=== PATIENT | female | born 1930 | race Two or more races ===

== ENCOUNTER 2017-01-16 12:39 | Inpatient (IN) | payer MEDICARE, MEDICAID ==
[~2017-01-16] VITALS: Ht 149.9 cm; Wt 55.0 kg
[2017-01-16] MEDS ORDERED: SODIUM CHLORIDE FLUSH 10ML SYR IVF ONE (13:00)
[2017-01-16] MEDS ORDERED: ASPIRIN 81 MG TABLET CHEW PO ONE (13:00)
[2017-01-16] MEDS ORDERED: ASPIRIN 81 MG TABLET CHEW ONE (13:09)
[2017-01-16 13:23] LABS: HEMATOCRIT 31.5 % (34.6-47.8); HEMOGLOBIN 10.3 g/dL (11.7-16.4); WHITE BLOOD COUNT 7.8 x10^3/uL (3.4-10)
[2017-01-16 13:33] LABS: BLOOD UREA NITROGEN 32 mg/dL (7-18)
[2017-01-16 13:38] LABS: ASPARTATE AMINO TRANSFERASE 35 U/L (15-37); IS PT STATUS REG ER OR PRE ER? YES
[2017-01-16] MEDS ORDERED: LIDOCAINE 2%, 20ML ONE (13:56)
[2017-01-16] MEDS ORDERED: TICA90TA PO (14:20)
[2017-01-16] MEDS ORDERED: SITA25TA PO (14:20)
[2017-01-16] MEDS ORDERED: FERR325T5 BC (14:20)
[2017-01-16] MEDS ORDERED: CARV3.122 PO ×2 (14:20→14:22)
[2017-01-16] MEDS ORDERED: ASPI-621 PO (14:20)
[2017-01-16] MEDS ORDERED: SIMV40TA3 PO (14:20)
[2017-01-16] MEDS ORDERED: GLIP5TAB10 PO (14:20)
[2017-01-16] MEDS ORDERED: PANT40TA5 PO (14:20)
[2017-01-16] MEDS ORDERED: LEVO50TA5 PO (14:20)
[2017-01-16] MEDS ORDERED: BUME0.5T PO (14:22)
[2017-01-16] MEDS ORDERED: BUME1TAB21 PO (14:22)
[2017-01-16] MEDS ORDERED: SODIUM CHLORIDE FLUSH 10ML SYR IVF PRN (14:30)
[2017-01-16 15:48] LABS: TOTAL IRON BINDING CAPACITY 304 mcg/dL (250-450)
[2017-01-16] MEDS ORDERED: hydrALAzine 20 MG/ML, 1ML IVPush PRN (16:00)
[2017-01-16] MEDS ORDERED: ONDANSETRON 2MG/ML, 2ML IVPush PRN (16:00)
[2017-01-16] MEDS ORDERED: HYDROcodone/APAP 5/325 TABLET PO PRN (16:00)
[2017-01-16] MEDS ORDERED: morphine SULFATE 10 MG/ML, 1ML IVPush PRN (16:00)
[2017-01-16] MEDS ORDERED: ACETAMINOPHEN 325 MG TABLET PO PRN (16:00)
[2017-01-16] MEDS: PANTOPROZOLE 40MG TABLET PO SCH (16:30)
[2017-01-16 17:11] VITALS: BP 113/73
[2017-01-16] MEDS: FUROSEMIDE 20 MG/2 ML IV SCH (18:04)
[2017-01-16] MEDS ORDERED: NITROGLYCERIN 0.4 MG BOTTLE (25 TABS) SL ONE (18:09)
[2017-01-16 18:19] VITALS: BP 109/72
[2017-01-16] MEDS ORDERED: NITROGLYCERIN 0.4 MG BOTTLE (25 TABS) SL PRN (18:30)
[2017-01-16 18:34] VITALS: BP 103/64
[2017-01-16 20:00] VITALS: BP 112/73
[2017-01-16] MEDS: FERROUS SULFATE 325 MG TABLET PO SCH (21:04)
[2017-01-16] MEDS: TICAGRELOR 90 MG TABLET PO SCH (21:05)
[2017-01-16] MEDS: SIMVASTATIN 40 MG TABLET PO SCH (21:05)
[2017-01-16] MEDS: CARVEDILOL 3.125 MG TABLET PO SCH (21:05)
[2017-01-16] MEDS: INSULIN ASPART 100 UNITS/ML, PEN SQ-INSULIN SCH (21:41)
[2017-01-16 22:05] LABS: IS PT STATUS REG ER OR PRE ER? NO
[2017-01-17 02:00] VITALS: BP 119/78
[2017-01-17 04:16] LABS: IS PT STATUS REG ER OR PRE ER? NO
[2017-01-17 04:21] LABS: ASPARTATE AMINO TRANSFERASE 25 U/L (15-37); BLOOD UREA NITROGEN 34 mg/dL (7-18)
[2017-01-17] MEDS: POLYETHYLENE GLYCOL 17 GM PACKET PO SCH (05:11)
[2017-01-17 08:00] VITALS: BP 108/76
[2017-01-17] MEDS: ENOXAPARIN 30 MG/0.3 ML SQ SCH (09:57)
[2017-01-17] MEDS: INSULIN ASPART 100 UNITS/ML, PEN SQ-INSULIN SCH ×4 (09:57→20:47)
[2017-01-17] MEDS: PANTOPROZOLE 40MG TABLET PO SCH (09:57)
[2017-01-17] MEDS: ASPIRIN 81 MG TABLET EC PO SCH (09:58)
[2017-01-17] MEDS: CARVEDILOL 3.125 MG TABLET PO SCH ×2 (09:58→20:49)
[2017-01-17] MEDS: FERROUS SULFATE 325 MG TABLET PO SCH ×2 (09:58→20:48)
[2017-01-17] MEDS: LEVOTHYROXINE 50 MCG TABLET PO SCH (09:58)
[2017-01-17] MEDS: TICAGRELOR 90 MG TABLET PO SCH ×2 (09:58→20:48)
[2017-01-17] MEDS: POTASSIUM CHLORIDE 20 MEQ TAB.ER.PRT PO SCH (09:59)
[2017-01-17] MEDS: FUROSEMIDE 20 MG/2 ML IV SCH ×2 (09:59→17:51)
[2017-01-17 15:12] VITALS: BP 100/66
[2017-01-17 20:15] VITALS: BP 103/63
[2017-01-17] MEDS: SIMVASTATIN 40 MG TABLET PO SCH (20:48)
[2017-01-18 01:00] VITALS: BP 105/70
[2017-01-18] MEDS ORDERED: hydrALAzine 20 MG/ML, 1ML IVPush PRN (02:00)
[2017-01-18] MEDS ORDERED: ACETAMINOPHEN 325 MG TABLET PO PRN (02:00)
[2017-01-18] MEDS ORDERED: NITROGLYCERIN 0.4 MG BOTTLE (25 TABS) SL PRN (02:00)
[2017-01-18] MEDS ORDERED: ONDANSETRON 2MG/ML, 2ML IVPush PRN (02:00)
[2017-01-18] MEDS ORDERED: morphine SULFATE 10 MG/ML, 1ML IVPush PRN (02:00)
[2017-01-18] MEDS ORDERED: HYDROcodone/APAP 5/325 TABLET PO PRN (02:00)
[2017-01-18 06:09] LABS: BLOOD UREA NITROGEN 34 mg/dL (7-18)
[2017-01-18] MEDS: LEVOTHYROXINE 50 MCG TABLET PO SCH (06:19)
[2017-01-18] MEDS: INSULIN ASPART 100 UNITS/ML, PEN SQ-INSULIN SCH ×4 (07:00→21:23)
[2017-01-18 08:30] VITALS: BP 113/74
[2017-01-18] MEDS: POLYETHYLENE GLYCOL 17 GM PACKET PO SCH (08:58)
[2017-01-18] MEDS: FERROUS SULFATE 325 MG TABLET PO SCH ×2 (08:59→21:18)
[2017-01-18] MEDS: FUROSEMIDE 20 MG/2 ML IV SCH ×2 (08:59→16:54)
[2017-01-18] MEDS: POTASSIUM CHLORIDE 20 MEQ TAB.ER.PRT PO SCH (08:59)
[2017-01-18] MEDS: CARVEDILOL 3.125 MG TABLET PO SCH ×2 (08:59→21:18)
[2017-01-18] MEDS: ASPIRIN 81 MG TABLET EC PO SCH (08:59)
[2017-01-18] MEDS: TICAGRELOR 90 MG TABLET PO SCH ×2 (08:59→21:18)
[2017-01-18] MEDS: PANTOPROZOLE 40MG TABLET PO SCH (08:59)
[2017-01-18] MEDS: ENOXAPARIN 30 MG/0.3 ML SQ SCH (09:00)
[2017-01-18 14:02] VITALS: BP 96/62
[2017-01-18 19:01] VITALS: BP 96/61
[2017-01-18 21:14] VITALS: BP 105/67
[2017-01-18] MEDS: SIMVASTATIN 40 MG TABLET PO SCH (21:18)
[2017-01-19 00:28] VITALS: BP 94/58
[2017-01-19 05:20] LABS: BLOOD UREA NITROGEN 35 mg/dL (7-18)
[2017-01-19] MEDS: LEVOTHYROXINE 50 MCG TABLET PO SCH (05:32)
[2017-01-19] MEDS: INSULIN ASPART 100 UNITS/ML, PEN SQ-INSULIN SCH ×4 (07:00→21:32)
[2017-01-19 08:24] VITALS: BP 105/68
[2017-01-19] MEDS: POLYETHYLENE GLYCOL 17 GM PACKET PO SCH (09:00)
[2017-01-19] MEDS: FUROSEMIDE 20 MG/2 ML IV SCH ×2 (09:42→17:00)
[2017-01-19] MEDS: PANTOPROZOLE 40MG TABLET PO SCH (09:42)
[2017-01-19] MEDS: FERROUS SULFATE 325 MG TABLET PO SCH ×2 (09:43→21:22)
[2017-01-19] MEDS: POTASSIUM CHLORIDE 20 MEQ TAB.ER.PRT PO SCH (09:43)
[2017-01-19] MEDS: CARVEDILOL 3.125 MG TABLET PO SCH ×2 (09:43→21:25)
[2017-01-19] MEDS: ASPIRIN 81 MG TABLET EC PO SCH (09:43)
[2017-01-19] MEDS: TICAGRELOR 90 MG TABLET PO SCH ×2 (09:44→21:22)
[2017-01-19] MEDS: ENOXAPARIN 30 MG/0.3 ML SQ SCH (09:45)
[2017-01-19 14:30] VITALS: BP 97/65
[2017-01-19 18:48] VITALS: BP 92/58
[2017-01-19] MEDS: SIMVASTATIN 40 MG TABLET PO SCH (21:23)
[2017-01-20 02:00] VITALS: BP 102/62
[2017-01-20] MEDS: LEVOTHYROXINE 50 MCG TABLET PO SCH (04:27)
[2017-01-20 04:28] VITALS: BP_SYST 108
[2017-01-20 05:51] LABS: BLOOD UREA NITROGEN 38 mg/dL (7-18)
[2017-01-20] MEDS: INSULIN ASPART 100 UNITS/ML, PEN SQ-INSULIN SCH ×4 (07:00→20:56)
[2017-01-20 09:25] VITALS: BP 99/62
[2017-01-20] MEDS: CARVEDILOL 3.125 MG TABLET PO SCH ×2 (09:26→20:47)
[2017-01-20] MEDS: ASPIRIN 81 MG TABLET EC PO SCH (09:26)
[2017-01-20] MEDS: TICAGRELOR 90 MG TABLET PO SCH ×2 (09:26→20:47)
[2017-01-20] MEDS: FERROUS SULFATE 325 MG TABLET PO SCH ×2 (09:26→20:47)
[2017-01-20] MEDS: POLYETHYLENE GLYCOL 17 GM PACKET PO SCH (09:27)
[2017-01-20] MEDS: FUROSEMIDE 20 MG/2 ML IV SCH ×2 (09:27→16:47)
[2017-01-20] MEDS: ENOXAPARIN 30 MG/0.3 ML SQ SCH (09:27)
[2017-01-20] MEDS: POTASSIUM CHLORIDE 20 MEQ TAB.ER.PRT PO SCH (09:27)
[2017-01-20] MEDS: PANTOPROZOLE 40MG TABLET PO SCH (09:27)
[2017-01-20 14:10] VITALS: BP 103/64
[2017-01-20 19:30] VITALS: BP 93/55
[2017-01-20] MEDS: SIMVASTATIN 40 MG TABLET PO SCH (21:08)
[2017-01-21 02:00] VITALS: BP 102/64
[2017-01-21 05:35] LABS: BLOOD UREA NITROGEN 40 mg/dL (7-18)
[2017-01-21] MEDS: LEVOTHYROXINE 50 MCG TABLET PO SCH (06:45)
[2017-01-21 08:28] VITALS: BP 97/65
[2017-01-21] MEDS: INSULIN ASPART 100 UNITS/ML, PEN SQ-INSULIN SCH ×4 (08:30→20:22)
[2017-01-21] MEDS: FERROUS SULFATE 325 MG TABLET PO SCH ×2 (08:32→20:21)
[2017-01-21] MEDS: TICAGRELOR 90 MG TABLET PO SCH ×2 (08:32→20:21)
[2017-01-21] MEDS: ASPIRIN 81 MG TABLET EC PO SCH (08:32)
[2017-01-21] MEDS: CARVEDILOL 3.125 MG TABLET PO SCH ×2 (08:33→22:30)
[2017-01-21] MEDS: PANTOPROZOLE 40MG TABLET PO SCH (08:33)
[2017-01-21 10:45] VITALS: BP 101/59
[2017-01-21] MEDS: POTASSIUM CHLORIDE 20 MEQ TAB.ER.PRT PO SCH (10:46)
[2017-01-21] MEDS: POLYETHYLENE GLYCOL 17 GM PACKET PO SCH (10:47)
[2017-01-21] MEDS: ENOXAPARIN 30 MG/0.3 ML SQ SCH (10:47)
[2017-01-21] MEDS: FUROSEMIDE 40 MG TABLET PO SCH (10:48)
[2017-01-21 14:05] VITALS: BP 98/62
[2017-01-21 19:45] VITALS: BP 94/60
[2017-01-21] MEDS: SIMVASTATIN 40 MG TABLET PO SCH (20:21)
[2017-01-21 22:29] VITALS: BP 95/64
[2017-01-22 02:00] VITALS: BP 103/68
[2017-01-22] MEDS: LEVOTHYROXINE 50 MCG TABLET PO SCH (05:30)
[2017-01-22 06:17] LABS: BLOOD UREA NITROGEN 48 mg/dL (7-18)
[2017-01-22 07:54] VITALS: BP 100/64
[2017-01-22] MEDS: ENOXAPARIN 30 MG/0.3 ML SQ SCH (08:34)
[2017-01-22] MEDS: INSULIN ASPART 100 UNITS/ML, PEN SQ-INSULIN SCH (08:34)
[2017-01-22] MEDS: ASPIRIN 81 MG TABLET EC PO SCH (08:34)
[2017-01-22] MEDS: FUROSEMIDE 40 MG TABLET PO SCH (08:34)
[2017-01-22] MEDS: PANTOPROZOLE 40MG TABLET PO SCH (08:34)
[2017-01-22] MEDS: POLYETHYLENE GLYCOL 17 GM PACKET PO SCH (08:34)
[2017-01-22] MEDS: POTASSIUM CHLORIDE 20 MEQ TAB.ER.PRT PO SCH (08:35)
[2017-01-22] MEDS: TICAGRELOR 90 MG TABLET PO SCH (08:35)
[2017-01-22] MEDS: FERROUS SULFATE 325 MG TABLET PO SCH (08:35)
[2017-01-22] MEDS: CARVEDILOL 3.125 MG TABLET PO SCH (08:35)
[2017-01-22] MEDS ORDERED: FURO-93 PO (08:45)
[2017-01-22] MEDS ORDERED: POTA20TA6 PO (08:45)
[2017-01-22] MEDS ORDERED: POLY17PO5 PO (08:55)
[2017-01-22] MEDS ORDERED: POTA10TA11 PO (09:14)
== END 2017-01-22 11:25 | disposition home health service (06) | DRG 291 ==
LOC: SUATTDRO 15:14 → ED 15:15 → EDIP 15:48 → 5SO 17:02 → DCLOUNGE 01-22 10:58
PROVIDERS: ADMIT Internal Medicine; ATTEND Internal Medicine
PROC: 0W9B3ZZ Drainage of Left Pleural Cavity, Percutaneous Approach (ICD-10-PCS; principal; 2017-01-16)
DX: I13.0 Hypertensive heart and chronic kidney disease with heart failure and stage 1 through stage 4 chronic kidney disease, or unspecified chronic kidney disease (principal); I50.41 Acute combined systolic (congestive) and diastolic (congestive) heart failure; E43 Unspecified severe protein-calorie malnutrition; J90 Pleural effusion, not elsewhere classified; I24.9 Acute ischemic heart disease, unspecified; E87.1 Hypo-osmolality and hyponatremia; E11.22 Type 2 diabetes mellitus with diabetic chronic kidney disease; D75.89 Other specified diseases of blood and blood-forming organs; D50.9 Iron deficiency anemia, unspecified; I25.10 Atherosclerotic heart disease of native coronary artery without angina pectoris; I27.2 Other secondary pulmonary hypertension; I08.3 Combined rheumatic disorders of mitral, aortic and tricuspid valves; K59.09 Other constipation; N18.3 Chronic kidney disease, stage 3 (moderate); Z79.82 Long term (current) use of aspirin; Z95.5 Presence of coronary angioplasty implant and graft; Z68.24 Body mass index [BMI] 24.0-24.9, adult
CPT/HCPCS: 32555; 36415; 71010; 80048; 80053; 82150; 82945; 82962; 83036; 83540; 83550; 83615; 83735; 83880; 83986; 84100; 84157; 84443; 84484; 85025; 87015; 87070; 87075; 87102; 87116; 87205; 87206; 89051; 93005; 93306; 99285; J1650; J1815; J3490; J1940

== ENCOUNTER → 2017-02-02 | Outpatient (CLI) | payer MEDICARE, MEDICAID ==
[~2017-02-02] MED LIST: ASPI-621 PO; BUME0.5T PO; BUME1TAB21 PO; CARV3.122 PO; FERR325T5 BC; FURO-93 PO; GLIP5TAB10 PO; LEVO50TA5 PO; PANT40TA5 PO; POLY17PO5 PO; POTA10TA11 PO; POTA20TA6 PO; SIMV40TA3 PO; SITA25TA PO; TICA90TA PO
== END | disposition home or self-care (01) ==
LOC: CFH 15:07
PROVIDERS: ATTEND Physician Assistant Medical
DX: I51.7 Cardiomegaly (principal); J90 Pleural effusion, not elsewhere classified
CPT/HCPCS: 71020

== ENCOUNTER 2017-04-25 19:09 | Inpatient (IN) | payer MEDICARE, MEDICAID ==
[~2017-04-25] VITALS: Ht 144.8 cm; Wt 59.3 kg
[2017-04-25] MEDS ORDERED: ASPIRIN 81 MG TABLET CHEW ONE (19:52)
[2017-04-25] MEDS ORDERED: SODIUM CHLORIDE FLUSH 10ML SYR IVF ONE (20:00)
[2017-04-25] MEDS ORDERED: ASPIRIN 81 MG TABLET CHEW PO ONE (20:00)
[2017-04-25 20:12] LABS: BASOPHILS # (AUTO) 0.02 x10^3/uL (0-0.1); BASOPHILS % (AUTO) 0 % (0-1); EOSINOPHILS # (AUTO) 0.04 x10^3/uL (0-0.4); EOSINOPHILS % (AUTO) 0 % (1-7); LYMPHOCYTES # (AUTO) 1.31 x10^3/uL (1-3.4); LYMPHOCYTES % (AUTO) 16 % (22-44); MD NO; MEAN CORPUSCULAR HEMOGLOBIN 30.2 pg (27.0-34.8); MEAN CORPUSCULAR HGB CONC 33.9 g/dL (32.4-35.8); MEAN CORPUSCULAR VOLUME 89.2 fL (80-100); MEAN PLATELET VOLUME 7.7 fL (7.4-10.4); MONOCYTES # (AUTO) 0.47 x10^3/uL (0.2-0.8); MONOCYTES % (AUTO) 6 % (2-9); NEUTROPHILS # (AUTO) 6.66 x10^3/uL (1.8-6.8); NEUTROPHILS % (AUTO) 78 % (42-75); PLATELET COUNT 342 x10^3/uL (130-400); RED BLOOD COUNT 3.38 x10^6/uL (3.82-5.3); RED CELL DISTRIBUTION WIDTH 15.4 % (9.6-15.2)
[2017-04-25 20:23] LABS: ALBUMIN 3.6 g/dL (3.4-5.0); ANION GAP 11 mmol/L (5-15); CHLORIDE 102 mmol/L (98-107)
[2017-04-25 20:29] LABS: CREATININE 2.69 mg/dL (0.55-1.02)
[2017-04-25] MEDS ORDERED: HEPARIN 5,000 UNITS/ML, 1ML IV ONE (21:00)
[2017-04-25] MEDS ORDERED: HEPARIN 25,000 UNITS/500ML PMX 500 ML IV PRN (21:00)
[2017-04-25] MEDS ORDERED: NITROGLYCERIN 0.4 MG/SPRAY SL PRN (21:30)
[2017-04-25] MEDS ORDERED: PROMETHAZINE 25 MG/ML, 1ML IM PRN (21:30)
[2017-04-25] MEDS ORDERED: NITROGLYCERIN 0.4 MG BOTTLE (25 TABS) SL PRN (21:30)
[2017-04-25] MEDS ORDERED: BISACODYL 10 MG SUPP PR PRN (21:30)
[2017-04-25] MEDS ORDERED: DOCUSATE 100 MG CAPSULE PO PRN (21:30)
[2017-04-25] MEDS ORDERED: ONDANSETRON 2MG/ML, 2ML IVPush PRN (21:30)
[2017-04-25] MEDS ORDERED: ACETAMINOPHEN 325 MG TABLET PO PRN (21:30)
[2017-04-25] MEDS ORDERED: morphine SULFATE 10 MG/ML, 1ML IVPush PRN (21:30)
[2017-04-25] MEDS ORDERED: ONDANSETRON ODT 4 MG PO PRN (21:30)
[2017-04-25] MEDS ORDERED: HEPARIN 25,000 UNITS/500ML PMX 500 ML ONE (21:39)
[2017-04-25] MEDS ORDERED: HEPARIN 5,000 UNITS/ML, 1ML ONE (21:39)
[2017-04-25] MEDS ORDERED: GLIP10TA13 PO ×2 (21:58→21:59)
[2017-04-25 22:04] LABS: HEMOGLOBIN A1C 9.3 % (4.2-6.3)
[2017-04-25 23:35] VITALS: BP 102/61
[2017-04-26] MEDS: INSULIN ASPART 100 UNITS/ML, PEN SQ-INSULIN SCH ×5 (00:30→19:34)
[2017-04-26] MEDS: SODIUM CHLORIDE 0.9% 1,000 ML IV SCH ×3 (00:33→19:35)
[2017-04-26 04:30] VITALS: BP 101/59
[2017-04-26 04:34] LABS: BASOPHILS # (AUTO) 0.03 x10^3/uL (0-0.1); BASOPHILS % (AUTO) 0 % (0-1); EOSINOPHILS # (AUTO) 0.07 x10^3/uL (0-0.4); EOSINOPHILS % (AUTO) 1 % (1-7); LYMPHOCYTES # (AUTO) 1.91 x10^3/uL (1-3.4); LYMPHOCYTES % (AUTO) 28 % (22-44); MD NO; MEAN CORPUSCULAR HEMOGLOBIN 30.4 pg (27.0-34.8); MEAN CORPUSCULAR HGB CONC 33.8 g/dL (32.4-35.8); MEAN CORPUSCULAR VOLUME 89.9 fL (80-100); MEAN PLATELET VOLUME 7.8 fL (7.4-10.4); MONOCYTES # (AUTO) 0.78 x10^3/uL (0.2-0.8); MONOCYTES % (AUTO) 11 % (2-9); NEUTROPHILS # (AUTO) 4.07 x10^3/uL (1.8-6.8); NEUTROPHILS % (AUTO) 59 % (42-75); PLATELET COUNT 318 x10^3/uL (130-400); RED BLOOD COUNT 3.05 x10^6/uL (3.82-5.3); RED CELL DISTRIBUTION WIDTH 15.5 % (9.6-15.2)
[2017-04-26 04:41] LABS: CHLORIDE 108 mmol/L (98-107)
[2017-04-26 05:06] LABS: ALANINE AMINOTRANSFERASE 17 U/L (12-78); ALBUMIN 3.1 g/dL (3.4-5.0); ALKALINE PHOSPHATASE 53 U/L (45-117); ANION GAP 10 mmol/L (5-15); BILIRUBIN,TOTAL 0.6 mg/dL (0.2-1.0); CALCIUM 8.5 mg/dL (8.5-10.1); CHOL/HDL RATIO 1.8; CHOLESTEROL, TOTAL 90 mg/dL (140-239); CREATININE 2.19 mg/dL (0.55-1.02); HDL CHOL % 54 % (28-40); HDL CHOLESTEROL (DIRECT) 49 mg/dL (40-60); LDL CHOLESTEROL,CALCULATED 27 mg/dL (54-169); LDL/HDL RATIO 0.6 (0.5-3.0); TOTAL PROTEIN 7.3 g/dL (6.4-8.2); TRIGLYCERIDES 68 mg/dL (50-200); VLDL CHOLESTEROL 14 mg/dL (0-25)
[2017-04-26] MEDS: HEPARIN 5,000 UNITS/ML, 1ML IV PRN ×2 (05:47→18:22)
[2017-04-26] MEDS ORDERED: ASPIRIN 325 MG TABLET EC PO SCH (06:00)
[2017-04-26 06:47] VITALS: BP 98/75
[2017-04-26] MEDS ORDERED: METOPROLOL TARTRATE 25 MG TABLET PO SCH (09:00)
[2017-04-26] MEDS: TICAGRELOR 90 MG TABLET PO SCH ×2 (10:32→19:34)
[2017-04-26 13:10] VITALS: BP 93/52
[2017-04-26] MEDS: METOPROLOL TARTRATE 25 MG TABLET PO SCH (18:16)
[2017-04-26 18:17] VITALS: BP 118/65
[2017-04-26 20:22] VITALS: BP 98/59
[2017-04-27 00:53] VITALS: BP 103/59
[2017-04-27] MEDS ORDERED: ASPIRIN 81 MG TABLET EC PO SCH (06:00)
[2017-04-27] MEDS: METOPROLOL TARTRATE 25 MG TABLET PO SCH (06:00)
[2017-04-27 06:38] LABS: BASOPHILS # (AUTO) 0.02 x10^3/uL (0-0.1); BASOPHILS % (AUTO) 0 % (0-1); EOSINOPHILS # (AUTO) 0.15 x10^3/uL (0-0.4); EOSINOPHILS % (AUTO) 2 % (1-7); LYMPHOCYTES # (AUTO) 1.85 x10^3/uL (1-3.4); LYMPHOCYTES % (AUTO) 27 % (22-44); MD NO; MEAN CORPUSCULAR HEMOGLOBIN 30.1 pg (27.0-34.8); MEAN CORPUSCULAR VOLUME 91.3 fL (80-100); MEAN PLATELET VOLUME 7.5 fL (7.4-10.4); MONOCYTES # (AUTO) 0.67 x10^3/uL (0.2-0.8); MONOCYTES % (AUTO) 10 % (2-9); NEUTROPHILS # (AUTO) 4.22 x10^3/uL (1.8-6.8); NEUTROPHILS % (AUTO) 61 % (42-75); PLATELET COUNT 284 x10^3/uL (130-400); RED BLOOD COUNT 2.93 x10^6/uL (3.82-5.3); RED CELL DISTRIBUTION WIDTH 16.3 % (9.6-15.2)
[2017-04-27] MEDS: SODIUM CHLORIDE 0.9% 1,000 ML IV SCH (06:52)
[2017-04-27 07:37] LABS: ANION GAP 11 mmol/L (5-15); CALCIUM 8.8 mg/dL (8.5-10.1); CHLORIDE 109 mmol/L (98-107); CREATININE 1.64 mg/dL (0.55-1.02)
[2017-04-27] MEDS: INSULIN ASPART 100 UNITS/ML, PEN SQ-INSULIN SCH (07:46)
[2017-04-27] MEDS: TICAGRELOR 90 MG TABLET PO SCH (07:46)
[2017-04-27 07:54] VITALS: BP 114/63
[2017-04-27] MEDS ORDERED: ATORVASTATIN 20 MG TABLET PO SCH (21:00)
== END 2017-04-27 12:33 | disposition home or self-care (01) | DRG 280 ==
LOC: ED 20:48 → EDIP 20:53 → 5SO 23:37
PROVIDERS: ADMIT Surgery; ATTEND Surgery
DX: I21.4 Non-ST elevation (NSTEMI) myocardial infarction (principal); I50.33 Acute on chronic diastolic (congestive) heart failure; N17.9 Acute kidney failure, unspecified; N18.4 Chronic kidney disease, stage 4 (severe); I13.0 Hypertensive heart and chronic kidney disease with heart failure and stage 1 through stage 4 chronic kidney disease, or unspecified chronic kidney disease; I50.22 Chronic systolic (congestive) heart failure; E11.22 Type 2 diabetes mellitus with diabetic chronic kidney disease; D63.8 Anemia in other chronic diseases classified elsewhere; E05.90 Thyrotoxicosis, unspecified without thyrotoxic crisis or storm; I45.10 Unspecified right bundle-branch block; E78.00 Pure hypercholesterolemia, unspecified; E86.0 Dehydration; E03.9 Hypothyroidism, unspecified; I25.10 Atherosclerotic heart disease of native coronary artery without angina pectoris; I25.2 Old myocardial infarction; Z79.82 Long term (current) use of aspirin; Z79.899 Other long term (current) drug therapy; Z87.891 Personal history of nicotine dependence; Z95.5 Presence of coronary angioplasty implant and graft; Z98.42 Cataract extraction status, left eye; Z98.41 Cataract extraction status, right eye
CPT/HCPCS: 36415; 71010; 71020; 80048; 80053; 80061; 82040; 82962; 83036; 83735; 83880; 84100; 84443; 84484; 85025; 85520; 93005; 93306; 96365; 96366; J1644; J1815; J7030

== ENCOUNTER 2017-04-27 16:20 | Inpatient (IN) | payer MEDICARE, MEDICAID ==
[~2017-04-27] VITALS: Ht 144.8 cm; Wt 57.7 kg
[~2017-04-27 16:20] MED LIST changes: +GLIP10TA13 PO
[2017-04-27] MEDS ORDERED: PLEASE ENTER HEIGHT AND WEIGHT MC SCH (16:30)
[2017-04-27] MEDS ORDERED: SODIUM CHLORIDE FLUSH 10ML SYR IVF ONE (16:30)
[2017-04-27 16:47] LABS: BASOPHILS # (AUTO) 0.03 x10^3/uL (0-0.1); BASOPHILS % (AUTO) 1 % (0-1); EOSINOPHILS # (AUTO) 0.15 x10^3/uL (0-0.4); EOSINOPHILS % (AUTO) 2 % (1-7); LYMPHOCYTES # (AUTO) 1.36 x10^3/uL (1-3.4); LYMPHOCYTES % (AUTO) 21 % (22-44); MD NO; MEAN CORPUSCULAR HEMOGLOBIN 30.2 pg (27.0-34.8); MEAN CORPUSCULAR HGB CONC 33.3 g/dL (32.4-35.8); MEAN CORPUSCULAR VOLUME 90.9 fL (80-100); MEAN PLATELET VOLUME 7.6 fL (7.4-10.4); MONOCYTES # (AUTO) 0.65 x10^3/uL (0.2-0.8); MONOCYTES % (AUTO) 10 % (2-9); NEUTROPHILS # (AUTO) 4.23 x10^3/uL (1.8-6.8); NEUTROPHILS % (AUTO) 66 % (42-75); PLATELET COUNT 293 x10^3/uL (130-400); RED CELL DISTRIBUTION WIDTH 15.9 % (9.6-15.2)
[2017-04-27 16:57] LABS: INTERNATIONAL NORMALIZED RATIO 0.97 (0.93-1.1)
[2017-04-27 16:58] LABS: ALBUMIN 3.1 g/dL (3.4-5.0); ANION GAP 10 mmol/L (5-15); CALCIUM 8.8 mg/dL (8.5-10.1); CHLORIDE 110 mmol/L (98-107); CREATININE 1.66 mg/dL (0.55-1.02)
[2017-04-27 18:30] VITALS: BP 108/62
[2017-04-27] MEDS ORDERED: BISACODYL 10 MG SUPP PR PRN (18:30)
[2017-04-27] MEDS ORDERED: ONDANSETRON 2MG/ML, 2ML IVPush PRN (18:30)
[2017-04-27] MEDS ORDERED: HEPARIN 5,000 UNITS/ML, 1ML SQ SCH (18:30)
[2017-04-27 18:48] VITALS: BP 108/62
[2017-04-27] MEDS: TICAGRELOR 90 MG TABLET PO SCH (19:58)
[2017-04-27] MEDS: FERROUS SULFATE 325 MG TABLET PO SCH (19:59)
[2017-04-27] MEDS: SIMVASTATIN 40 MG TABLET PO SCH (19:59)
[2017-04-27] MEDS: PANTOPROZOLE 40MG TABLET PO SCH (19:59)
[2017-04-27] MEDS: SODIUM CHLORIDE FLUSH 10ML SYR IVF SCH (19:59)
[2017-04-27] MEDS: CARVEDILOL 3.125 MG TABLET PO SCH (19:59)
[2017-04-27] MEDS ORDERED: HEPARIN 5,000 UNITS/ML, 1ML IV ONE (21:30)
[2017-04-27] MEDS ORDERED: HEPARIN 5,000 UNITS/ML, 1ML IV PRN (21:30)
[2017-04-27] MEDS ORDERED: HEPARIN 25,000 UNITS/500ML PMX 500 ML IV PRN (21:30)
[2017-04-27] MEDS: NITROGLYCERIN 0.4 MG BOTTLE (25 TABS) SL PRN ×2 (21:54→21:58)
[2017-04-27 22:02] VITALS: BP 103/63
[2017-04-28 01:17] VITALS: BP 96/56
[2017-04-28 03:21] LABS: BASOPHILS # (AUTO) 0.02 x10^3/uL (0-0.1); BASOPHILS % (AUTO) 0 % (0-1); EOSINOPHILS # (AUTO) 0.17 x10^3/uL (0-0.4); EOSINOPHILS % (AUTO) 2 % (1-7); LYMPHOCYTES # (AUTO) 1.54 x10^3/uL (1-3.4); LYMPHOCYTES % (AUTO) 19 % (22-44); MD NO; MEAN CORPUSCULAR HGB CONC 32.9 g/dL (32.4-35.8); MEAN PLATELET VOLUME 7.4 fL (7.4-10.4); MONOCYTES # (AUTO) 0.91 x10^3/uL (0.2-0.8); MONOCYTES % (AUTO) 11 % (2-9); NEUTROPHILS # (AUTO) 5.71 x10^3/uL (1.8-6.8); NEUTROPHILS % (AUTO) 68 % (42-75); PLATELET COUNT 272 x10^3/uL (130-400); RED BLOOD COUNT 2.75 x10^6/uL (3.82-5.3); RED CELL DISTRIBUTION WIDTH 16.1 % (9.6-15.2)
[2017-04-28 03:23] LABS: ALANINE AMINOTRANSFERASE 17 U/L (12-78); ALBUMIN 2.8 g/dL (3.4-5.0); ANION GAP 8 mmol/L (5-15); CALCIUM 8.5 mg/dL (8.5-10.1); CHLORIDE 112 mmol/L (98-107); CREATININE 1.59 mg/dL (0.55-1.02)
[2017-04-28 03:25] LABS: ALKALINE PHOSPHATASE 48 U/L (45-117); BILIRUBIN,TOTAL 0.6 mg/dL (0.2-1.0); TOTAL PROTEIN 6.7 g/dL (6.4-8.2)
[2017-04-28] MEDS: LEVOTHYROXINE 50 MCG TABLET PO SCH (05:29)
[2017-04-28 07:51] VITALS: BP 96/58
[2017-04-28] MEDS ORDERED: SODIUM BICARB 8.4%,50ML SYR. 150 MEQ in DEXTROSE 5% 1,000 ML IV SCH (08:30)
[2017-04-28] MEDS: ACETAMINOPHEN 325 MG TABLET PO PRN ×2 (08:40→13:31)
[2017-04-28] MEDS: CARVEDILOL 3.125 MG TABLET PO SCH ×2 (08:42→22:23)
[2017-04-28] MEDS: PANTOPROZOLE 40MG TABLET PO SCH (08:42)
[2017-04-28] MEDS: TICAGRELOR 90 MG TABLET PO SCH ×2 (08:42→22:22)
[2017-04-28] MEDS: FUROSEMIDE 20 MG TABLET PO SCH (08:42)
[2017-04-28] MEDS: POTASSIUM CHLORIDE 10 MEQ TABLET.ER PO SCH (08:42)
[2017-04-28] MEDS: ASPIRIN 81 MG TABLET EC PO SCH (08:42)
[2017-04-28] MEDS: SENNA/DOCUSATE TABLET PO SCH (08:43)
[2017-04-28] MEDS: POLYETHYLENE GLYCOL 17 GM PACKET PO SCH (08:43)
[2017-04-28] MEDS: SODIUM CHLORIDE FLUSH 10ML SYR IVF SCH ×2 (08:43→22:23)
[2017-04-28 13:13] VITALS: BP 101/61
[2017-04-28] MEDS ORDERED: FENTANYL PF 100 MCG/2ML ONE (16:27)
[2017-04-28] MEDS ORDERED: BIVALIRUDIN 250 MG ONE (16:28)
[2017-04-28] MEDS ORDERED: VERAPAMIL 2.5 MG/ML, 2ML ONE (16:28)
[2017-04-28] MEDS ORDERED: TICAGRELOR 90 MG TABLET ONE (16:28)
[2017-04-28] MEDS ORDERED: HEPARIN 1,000 UNITS/ML, 10ML ONE (16:28)
[2017-04-28] MEDS ORDERED: MIDAZOLAM 1 MG/ML, 5ML ONE (16:28)
[2017-04-28] MEDS ORDERED: LIDOCAINE 2%, 20ML ONE (16:28)
[2017-04-28] MEDS: MORPHINE SULFATE 4 MG/ML, 1ML IVPush PRN ×2 (18:06→19:08)
[2017-04-28 19:01] VITALS: BP 115/71
[2017-04-28] MEDS: FERROUS SULFATE 325 MG TABLET PO SCH (22:23)
[2017-04-28] MEDS: SIMVASTATIN 40 MG TABLET PO SCH (22:23)
[2017-04-29 01:50] VITALS: BP 102/65
[2017-04-29] MEDS: LEVOTHYROXINE 50 MCG TABLET PO SCH (05:37)
[2017-04-29] MEDS: ACETAMINOPHEN 325 MG TABLET PO PRN ×2 (05:37→18:24)
[2017-04-29 05:59] LABS: BASOPHILS # (AUTO) 0.02 x10^3/uL (0-0.1); BASOPHILS % (AUTO) 0 % (0-1); EOSINOPHILS # (AUTO) 0.14 x10^3/uL (0-0.4); EOSINOPHILS % (AUTO) 2 % (1-7); LYMPHOCYTES # (AUTO) 1.54 x10^3/uL (1-3.4); LYMPHOCYTES % (AUTO) 18 % (22-44); MD NO; MEAN CORPUSCULAR HEMOGLOBIN 30.3 pg (27.0-34.8); MEAN CORPUSCULAR VOLUME 91.7 fL (80-100); MEAN PLATELET VOLUME 7.7 fL (7.4-10.4); MONOCYTES % (AUTO) 8 % (2-9); NEUTROPHILS # (AUTO) 5.96 x10^3/uL (1.8-6.8); NEUTROPHILS % (AUTO) 71 % (42-75); PLATELET COUNT 243 x10^3/uL (130-400); RED BLOOD COUNT 2.84 x10^6/uL (3.82-5.3)
[2017-04-29 06:12] LABS: ALBUMIN 2.8 g/dL (3.4-5.0); ANION GAP 9 mmol/L (5-15); CALCIUM 8.5 mg/dL (8.5-10.1); CHLORIDE 105 mmol/L (98-107)
[2017-04-29 08:22] VITALS: BP 102/60
[2017-04-29] MEDS: PANTOPROZOLE 40MG TABLET PO SCH (08:28)
[2017-04-29] MEDS ORDERED: SODIUM BICARB 8.4%,50ML SYR. 150 MEQ in DEXTROSE 5% 1,000 ML IV SCH (08:30)
[2017-04-29] MEDS: POLYETHYLENE GLYCOL 17 GM PACKET PO SCH (09:00)
[2017-04-29] MEDS: SODIUM CHLORIDE FLUSH 10ML SYR IVF SCH ×2 (09:21→20:40)
[2017-04-29] MEDS: ASPIRIN 81 MG TABLET EC PO SCH (09:22)
[2017-04-29] MEDS: POTASSIUM CHLORIDE 10 MEQ TABLET.ER PO SCH (09:22)
[2017-04-29] MEDS: CARVEDILOL 3.125 MG TABLET PO SCH ×2 (09:22→21:00)
[2017-04-29] MEDS: FUROSEMIDE 20 MG TABLET PO SCH (09:22)
[2017-04-29] MEDS: TICAGRELOR 90 MG TABLET PO SCH ×2 (09:23→20:39)
[2017-04-29] MEDS: SENNA/DOCUSATE TABLET PO SCH (09:23)
[2017-04-29 14:28] VITALS: BP 102/65
[2017-04-29 20:19] VITALS: BP 92/52
[2017-04-29] MEDS: SIMVASTATIN 40 MG TABLET PO SCH (20:39)
[2017-04-29] MEDS: FERROUS SULFATE 325 MG TABLET PO SCH (20:39)
[2017-04-30 04:00] VITALS: BP 102/64
[2017-04-30 06:05] LABS: ANION GAP 10 mmol/L (5-15); CALCIUM 8.4 mg/dL (8.5-10.1); CHLORIDE 103 mmol/L (98-107)
[2017-04-30 06:06] LABS: CREATININE 1.84 mg/dL (0.55-1.02)
[2017-04-30] MEDS: LEVOTHYROXINE 50 MCG TABLET PO SCH (06:55)
[2017-04-30] MEDS: POTASSIUM CHLORIDE 10 MEQ TABLET.ER PO SCH (07:45)
[2017-04-30] MEDS: PANTOPROZOLE 40MG TABLET PO SCH (07:45)
[2017-04-30] MEDS: FUROSEMIDE 20 MG TABLET PO SCH (07:45)
[2017-04-30] MEDS: ASPIRIN 81 MG TABLET EC PO SCH (07:45)
[2017-04-30] MEDS: POLYETHYLENE GLYCOL 17 GM PACKET PO SCH (07:46)
[2017-04-30] MEDS: SODIUM CHLORIDE FLUSH 10ML SYR IVF SCH ×2 (07:46→22:30)
[2017-04-30] MEDS: SENNA/DOCUSATE TABLET PO SCH (07:46)
[2017-04-30] MEDS: CARVEDILOL 3.125 MG TABLET PO SCH ×2 (07:46→22:30)
[2017-04-30] MEDS: TICAGRELOR 90 MG TABLET PO SCH ×2 (07:46→22:30)
[2017-04-30] MEDS: ACETAMINOPHEN 325 MG TABLET PO PRN (07:52)
[2017-04-30 08:44] VITALS: BP 105/64
[2017-04-30 14:19] VITALS: BP 122/72
[2017-04-30 19:49] VITALS: BP 119/55
[2017-04-30] MEDS: SIMVASTATIN 40 MG TABLET PO SCH (22:29)
[2017-04-30] MEDS: FERROUS SULFATE 325 MG TABLET PO SCH (22:30)
[2017-05-01 02:05] VITALS: BP 104/55
[2017-05-01 05:48] LABS: ANION GAP 10 mmol/L (5-15); CALCIUM 8.2 mg/dL (8.5-10.1); CHLORIDE 102 mmol/L (98-107)
[2017-05-01 05:50] LABS: CREATININE 1.96 mg/dL (0.55-1.02)
[2017-05-01] MEDS: LEVOTHYROXINE 50 MCG TABLET PO SCH (06:46)
[2017-05-01] MEDS: SENNA/DOCUSATE TABLET PO SCH (07:31)
[2017-05-01] MEDS: POLYETHYLENE GLYCOL 17 GM PACKET PO SCH (07:31)
[2017-05-01] MEDS: POTASSIUM CHLORIDE 10 MEQ TABLET.ER PO SCH (07:35)
[2017-05-01] MEDS: FUROSEMIDE 20 MG TABLET PO SCH (07:35)
[2017-05-01] MEDS: ASPIRIN 81 MG TABLET EC PO SCH (07:35)
[2017-05-01] MEDS: CARVEDILOL 3.125 MG TABLET PO SCH (07:36)
[2017-05-01] MEDS: SODIUM CHLORIDE FLUSH 10ML SYR IVF SCH (07:36)
[2017-05-01] MEDS: TICAGRELOR 90 MG TABLET PO SCH (07:36)
[2017-05-01] MEDS: PANTOPROZOLE 40MG TABLET PO SCH (07:36)
[2017-05-01 08:34] VITALS: BP 108/57
[2017-05-01] MEDS ORDERED: methylPREDNISolone SOD SUCC 125 MG/2 ML IVPush ONE (10:30)
[2017-05-01 12:26] VITALS: BP 110/57
[2017-05-01] MEDS ORDERED: METH4TAB2 PO (14:01)
[2017-05-01 14:52] VITALS: BP 125/65
== END 2017-05-01 17:30 | disposition home or self-care (01) | DRG 246 ==
LOC: ED 17:11 → 5SO 17:12 → ED 17:18 → DCLOUNGE 05-01 17:05
PROVIDERS: ADMIT Hospitalist; ATTEND Hospitalist
PROC: 027035Z Dilation of Coronary Artery, One Artery with Two Drug-eluting Intraluminal Devices, Percutaneous Approach (ICD-10-PCS; principal; 2017-04-28)
PROC: 4A023N7 Measurement of Cardiac Sampling and Pressure, Left Heart, Percutaneous Approach (ICD-10-PCS; 2017-04-28)
PROC: B2111ZZ Fluoroscopy of Multiple Coronary Arteries using Low Osmolar Contrast (ICD-10-PCS; 2017-04-28)
DX: T82.855A Stenosis of coronary artery stent, initial encounter (principal); I22.2 Subsequent non-ST elevation (NSTEMI) myocardial infarction; I21.4 Non-ST elevation (NSTEMI) myocardial infarction; E11.21 Type 2 diabetes mellitus with diabetic nephropathy; I13.0 Hypertensive heart and chronic kidney disease with heart failure and stage 1 through stage 4 chronic kidney disease, or unspecified chronic kidney disease; I50.22 Chronic systolic (congestive) heart failure; E44.1 Mild protein-calorie malnutrition; I47.1 Supraventricular tachycardia; I25.110 Atherosclerotic heart disease of native coronary artery with unstable angina pectoris; E11.40 Type 2 diabetes mellitus with diabetic neuropathy, unspecified; D64.9 Anemia, unspecified; E03.9 Hypothyroidism, unspecified; E11.22 Type 2 diabetes mellitus with diabetic chronic kidney disease; E11.65 Type 2 diabetes mellitus with hyperglycemia; E78.5 Hyperlipidemia, unspecified; I25.5 Ischemic cardiomyopathy; I45.10 Unspecified right bundle-branch block; K59.09 Other constipation; Y83.8 Other surgical procedures as the cause of abnormal reaction of the patient, or of later complication, without mention of misadventure at the time of the procedure; M10.9 Gout, unspecified; N18.3 Chronic kidney disease, stage 3 (moderate); Z79.82 Long term (current) use of aspirin; I25.2 Old myocardial infarction; Z80.9 Family history of malignant neoplasm, unspecified; Z87.891 Personal history of nicotine dependence; Y92.89 Other specified places as the place of occurrence of the external cause; Z68.27 Body mass index [BMI] 27.0-27.9, adult
CPT/HCPCS: 36415; 71010; 80048; 80053; 82040; 83880; 84484; 85025; 85520; 85610; 93005; 93458; 99156; 99157; 99285; C1769; C1894; C9600; J0583; J1644; J2250; J3010; J3490; J7070; C1725; C1874; C1887; J2930; Q9967

== ENCOUNTER 2017-05-09 10:29 | Inpatient (IN) | payer MEDICARE, MEDICAID ==
[~2017-05-09] VITALS: Ht 149.9 cm; Wt 57.1 kg
[~2017-05-09 10:29] MED LIST changes: +METH4TAB2 PO
[2017-05-09 12:26] LABS: BASOPHILS # (AUTO) 0.01 x10^3/uL (0-0.1); BASOPHILS % (AUTO) 0 % (0-1); EOSINOPHILS # (AUTO) 0.01 x10^3/uL (0-0.4); EOSINOPHILS % (AUTO) 0 % (1-7); LYMPHOCYTES # (AUTO) 0.78 x10^3/uL (1-3.4); LYMPHOCYTES % (AUTO) 6 % (22-44); MD NO; MEAN CORPUSCULAR HEMOGLOBIN 30.3 pg (27.0-34.8); MEAN CORPUSCULAR HGB CONC 33.3 g/dL (32.4-35.8); MEAN CORPUSCULAR VOLUME 91.2 fL (80-100); MEAN PLATELET VOLUME 7.5 fL (7.4-10.4); MONOCYTES # (AUTO) 0.81 x10^3/uL (0.2-0.8); MONOCYTES % (AUTO) 6 % (2-9); NEUTROPHILS # (AUTO) 12.03 x10^3/uL (1.8-6.8); NEUTROPHILS % (AUTO) 88 % (42-75); PLATELET COUNT 347 x10^3/uL (130-400); RED BLOOD COUNT 2.62 x10^6/uL (3.82-5.3); RED CELL DISTRIBUTION WIDTH 15.4 % (9.6-15.2)
[2017-05-09] MEDS ORDERED: SODIUM CHLORIDE FLUSH 10ML SYR IVF ONE (12:30)
[2017-05-09 12:37] LABS: INTERNATIONAL NORMALIZED RATIO 1.04 (0.93-1.1); PROTHROMBIN TIME 10.8 Seconds (9.6-11.5)
[2017-05-09 12:37] LABS: RAPID INFLUENZA A Negative (Negative); RAPID INFLUENZA B Negative (Negative)
[2017-05-09 12:38] LABS: ANION GAP 8 mmol/L (5-15); CALCIUM 8.2 mg/dL (8.5-10.1); CHLORIDE 99 mmol/L (98-107); CREATININE 2.24 mg/dL (0.55-1.02)
[2017-05-09] MEDS ORDERED: SODIUM CHLORIDE 0.9% 1,000ML IVBOLUS ONE (14:00)
[2017-05-09] MEDS ORDERED: SODIUM CHLORIDE FLUSH 10ML SYR IVF PRN (15:00)
[2017-05-09] MEDS ORDERED: ONDANSETRON 2MG/ML, 2ML IVPush PRN (15:30)
[2017-05-09] MEDS ORDERED: morphine SULFATE 10 MG/ML, 1ML IVPush PRN (15:30)
[2017-05-09] MEDS ORDERED: ENALAPRILAT 1.25 MG/ML, 2ML IVPush PRN (15:30)
[2017-05-09] MEDS ORDERED: BISACODYL 10 MG SUPP PR PRN (15:30)
[2017-05-09] MEDS ORDERED: CEFTRIAXONE 1,000 MG in SODIUM CHLORIDE 0.9% 50 ML IV SCH (15:30)
[2017-05-09] MEDS ORDERED: DEXTROSE 50%, 50ML SYRINGE IVPush PRN (15:30)
[2017-05-09] MEDS ORDERED: CEFTRIAXONE PMX 1GM/50ML 50 ML IV SCH (15:30)
[2017-05-09] MEDS ORDERED: POLYETHYLENE GLYCOL 17 GM PACKET PO PRN (15:30)
[2017-05-09] MEDS ORDERED: HYDROcodone/APAP 5/325 TABLET PO PRN (15:30)
[2017-05-09] MEDS ORDERED: DEXTROSE 4 GM TAB.CHEW PO PRN (15:30)
[2017-05-09] MEDS ORDERED: DOCUSATE 100 MG CAPSULE PO PRN (15:30)
[2017-05-09] MEDS ORDERED: FUROSEMIDE 20 MG/2 ML IV ONE (15:30)
[2017-05-09] MEDS ORDERED: LABETALOL 5MG/ML, 20ML IVPush PRN (15:30)
[2017-05-09] MEDS ORDERED: GLUCAGON 1 MG IM PRN (15:30)
[2017-05-09] MEDS ORDERED: CEFTRIAXONE PMX 1GM/50ML 50 ML ONE (15:35)
[2017-05-09 16:21] VITALS: BP 99/62
[2017-05-09] MEDS: ACETAMINOPHEN 325 MG TABLET PO PRN (17:01)
[2017-05-09] MEDS: HEPARIN 5,000 UNITS/ML, 1ML SQ SCH ×2 (17:01→23:17)
[2017-05-09] MEDS: AZITHROMYCIN 500 MG in SODIUM CHLORIDE 0.9% 250 ML IV SCH (17:25)
[2017-05-09] MEDS: INSULIN ASPART 100 UNITS/ML, PEN SQ-INSULIN SCH ×2 (17:40→20:14)
[2017-05-09 18:05] LABS: ANION GAP 8 mmol/L (5-15); CALCIUM 8.2 mg/dL (8.5-10.1); CHLORIDE 102 mmol/L (98-107)
[2017-05-09 20:10] VITALS: BP 91/51
[2017-05-09] MEDS: FERROUS SULFATE 325 MG TABLET PO SCH (20:14)
[2017-05-09] MEDS: TICAGRELOR 90 MG TABLET PO SCH (20:14)
[2017-05-09] MEDS: SIMVASTATIN 40 MG TABLET PO SCH (20:15)
[2017-05-09] MEDS: SODIUM CHLORIDE FLUSH 10ML SYR IVF SCH (20:16)
[2017-05-09] MEDS: CARVEDILOL 3.125 MG TABLET PO SCH (20:24)
[2017-05-10 01:17] VITALS: BP 96/55
[2017-05-10 04:59] LABS: BASOPHILS # (AUTO) 0.01 x10^3/uL (0-0.1); BASOPHILS % (AUTO) 0 % (0-1); EOSINOPHILS # (AUTO) 0.08 x10^3/uL (0-0.4); EOSINOPHILS % (AUTO) 1 % (1-7); LYMPHOCYTES # (AUTO) 0.91 x10^3/uL (1-3.4); LYMPHOCYTES % (AUTO) 7 % (22-44); MD NO; MEAN CORPUSCULAR HEMOGLOBIN 30.2 pg (27.0-34.8); MEAN CORPUSCULAR HGB CONC 32.7 g/dL (32.4-35.8); MEAN CORPUSCULAR VOLUME 92.3 fL (80-100); MEAN PLATELET VOLUME 7.4 fL (7.4-10.4); MONOCYTES # (AUTO) 0.69 x10^3/uL (0.2-0.8); MONOCYTES % (AUTO) 5 % (2-9); NEUTROPHILS # (AUTO) 12.29 x10^3/uL (1.8-6.8); NEUTROPHILS % (AUTO) 88 % (42-75); PLATELET COUNT 329 x10^3/uL (130-400); RED BLOOD COUNT 2.55 x10^6/uL (3.82-5.3); RED CELL DISTRIBUTION WIDTH 15.6 % (9.6-15.2)
[2017-05-10 05:10] LABS: CHLORIDE 102 mmol/L (98-107)
[2017-05-10 05:34] LABS: ALANINE AMINOTRANSFERASE 17 U/L (12-78); ALBUMIN 2.7 g/dL (3.4-5.0); ALKALINE PHOSPHATASE 78 U/L (45-117); ANION GAP 9 mmol/L (5-15); BILIRUBIN,TOTAL 0.8 mg/dL (0.2-1.0); CREATININE 1.91 mg/dL (0.55-1.02)
[2017-05-10] MEDS: LEVOTHYROXINE 50 MCG TABLET PO SCH (06:05)
[2017-05-10 07:34] VITALS: BP 98/58
[2017-05-10] MEDS: INSULIN ASPART 100 UNITS/ML, PEN SQ-INSULIN SCH ×4 (07:52→21:00)
[2017-05-10] MEDS: HEPARIN 5,000 UNITS/ML, 1ML SQ SCH ×3 (09:25→22:55)
[2017-05-10] MEDS: ASPIRIN 81 MG TABLET EC PO SCH (09:25)
[2017-05-10] MEDS: CARVEDILOL 3.125 MG TABLET PO SCH ×2 (09:26→21:00)
[2017-05-10] MEDS: SODIUM CHLORIDE FLUSH 10ML SYR IVF SCH ×2 (09:26→20:58)
[2017-05-10] MEDS: TICAGRELOR 90 MG TABLET PO SCH ×2 (09:26→21:00)
[2017-05-10 13:15] VITALS: BP 99/63
[2017-05-10] MEDS: GUAIFENESIN/DM 200-20MG, 10ML UDC PO PRN ×2 (14:17→20:59)
[2017-05-10] MEDS: ACETAMINOPHEN 325 MG TABLET PO PRN (14:17)
[2017-05-10] MEDS: CEFTRIAXONE 1,000 MG in DEXTROSE 5% 50 ML IV SCH (16:15)
[2017-05-10] MEDS: AZITHROMYCIN 500 MG in SODIUM CHLORIDE 0.9% 250 ML IV SCH (17:06)
[2017-05-10 19:41] VITALS: BP 97/52
[2017-05-10] MEDS: SIMVASTATIN 40 MG TABLET PO SCH (20:59)
[2017-05-10] MEDS: FERROUS SULFATE 325 MG TABLET PO SCH (21:00)
[2017-05-11 01:59] VITALS: BP 102/55
[2017-05-11 05:53] LABS: MEAN CORPUSCULAR HEMOGLOBIN 30.3 pg (27.0-34.8); MEAN CORPUSCULAR HGB CONC 33.2 g/dL (32.4-35.8); MEAN CORPUSCULAR VOLUME 91.4 fL (80-100); MEAN PLATELET VOLUME 7.4 fL (7.4-10.4); PLATELET COUNT 336 x10^3/uL (130-400); RED BLOOD COUNT 2.47 x10^6/uL (3.82-5.3); RED CELL DISTRIBUTION WIDTH 15.4 % (9.6-15.2)
[2017-05-11 05:54] LABS: ANION GAP 8 mmol/L (5-15); CALCIUM 8.5 mg/dL (8.5-10.1); CHLORIDE 102 mmol/L (98-107); CREATININE 1.65 mg/dL (0.55-1.02)
[2017-05-11] MEDS: LEVOTHYROXINE 50 MCG TABLET PO SCH (06:21)
[2017-05-11 06:27] LABS: BASOPHILS % (AUTO) 0 % (0-1); EOSINOPHILS # (AUTO) 0.22 x10^3/uL (0-0.4); EOSINOPHILS % (AUTO) 2 % (1-7); LYMPHOCYTES # (AUTO) 0.73 x10^3/uL (1-3.4); LYMPHOCYTES % (AUTO) 8 % (22-44); MD SCAN; MONOCYTES # (AUTO) 0.42 x10^3/uL (0.2-0.8); MONOCYTES % (AUTO) 4 % (2-9); NEUTROPHILS # (AUTO) 8.27 x10^3/uL (1.8-6.8); NEUTROPHILS % (AUTO) 86 % (42-75)
[2017-05-11 07:36] VITALS: BP 111/47
[2017-05-11] MEDS: INSULIN ASPART 100 UNITS/ML, PEN SQ-INSULIN SCH ×4 (07:43→21:00)
[2017-05-11 08:33] LABS: OCCULT BLOOD NEGATIVE (NEGATIVE)
[2017-05-11] MEDS: HEPARIN 5,000 UNITS/ML, 1ML SQ SCH ×2 (09:06→15:34)
[2017-05-11] MEDS: ASPIRIN 81 MG TABLET EC PO SCH (09:07)
[2017-05-11] MEDS: TICAGRELOR 90 MG TABLET PO SCH ×2 (09:07→21:25)
[2017-05-11] MEDS: SODIUM CHLORIDE FLUSH 10ML SYR IVF SCH ×2 (09:07→21:24)
[2017-05-11] MEDS: CARVEDILOL 3.125 MG TABLET PO SCH ×2 (09:07→21:25)
[2017-05-11] MEDS: GUAIFENESIN/DM 200-20MG, 10ML UDC PO PRN ×2 (09:12→21:25)
[2017-05-11 11:05] LABS: MEAN CORPUSCULAR HEMOGLOBIN 29.9 pg (27.0-34.8); MEAN CORPUSCULAR VOLUME 90.8 fL (80-100); MEAN PLATELET VOLUME 7.2 fL (7.4-10.4); PLATELET COUNT 364 x10^3/uL (130-400); RED CELL DISTRIBUTION WIDTH 15.6 % (9.6-15.2)
[2017-05-11 11:21] LABS: BASOPHILS % (AUTO) 0 % (0-1); EOSINOPHILS # (AUTO) 0.22 x10^3/uL (0-0.4); EOSINOPHILS % (AUTO) 3 % (1-7); LYMPHOCYTES # (AUTO) 0.79 x10^3/uL (1-3.4); LYMPHOCYTES % (AUTO) 9 % (22-44); MD SCAN; MONOCYTES # (AUTO) 0.55 x10^3/uL (0.2-0.8); MONOCYTES % (AUTO) 6 % (2-9); NEUTROPHILS # (AUTO) 7.02 x10^3/uL (1.8-6.8); NEUTROPHILS % (AUTO) 82 % (42-75)
[2017-05-11 15:14] VITALS: BP 116/73
[2017-05-11] MEDS: CEFTRIAXONE 1,000 MG in DEXTROSE 5% 50 ML IV SCH (15:34)
[2017-05-11] MEDS: AZITHROMYCIN 500 MG in SODIUM CHLORIDE 0.9% 250 ML IV SCH (16:32)
[2017-05-11 19:21] VITALS: BP 116/54
[2017-05-11] MEDS: SIMVASTATIN 40 MG TABLET PO SCH (21:25)
[2017-05-11] MEDS: FERROUS SULFATE 325 MG TABLET PO SCH (21:25)
[2017-05-12] MEDS: HEPARIN 5,000 UNITS/ML, 1ML SQ SCH ×2 (00:34→09:57)
[2017-05-12 01:39] VITALS: BP 100/50
[2017-05-12 05:16] LABS: BASOPHILS # (AUTO) 0.02 x10^3/uL (0-0.1); BASOPHILS % (AUTO) 0 % (0-1); EOSINOPHILS # (AUTO) 0.27 x10^3/uL (0-0.4); EOSINOPHILS % (AUTO) 4 % (1-7); LYMPHOCYTES # (AUTO) 1.08 x10^3/uL (1-3.4); LYMPHOCYTES % (AUTO) 16 % (22-44); MD NO; MEAN CORPUSCULAR HEMOGLOBIN 30.6 pg (27.0-34.8); MEAN CORPUSCULAR HGB CONC 33.5 g/dL (32.4-35.8); MEAN CORPUSCULAR VOLUME 91.5 fL (80-100); MEAN PLATELET VOLUME 7.3 fL (7.4-10.4); MONOCYTES # (AUTO) 0.62 x10^3/uL (0.2-0.8); MONOCYTES % (AUTO) 9 % (2-9); NEUTROPHILS # (AUTO) 4.94 x10^3/uL (1.8-6.8); NEUTROPHILS % (AUTO) 71 % (42-75); PLATELET COUNT 378 x10^3/uL (130-400); RED CELL DISTRIBUTION WIDTH 15.7 % (9.6-15.2)
[2017-05-12 05:31] LABS: CHLORIDE 103 mmol/L (98-107)
[2017-05-12] MEDS: LEVOTHYROXINE 50 MCG TABLET PO SCH (05:42)
[2017-05-12 05:44] LABS: % IRON SATURATION 21 % (20-55); ALANINE AMINOTRANSFERASE 41 U/L (12-78); ALBUMIN 2.6 g/dL (3.4-5.0); ALKALINE PHOSPHATASE 95 U/L (45-117); ANION GAP 10 mmol/L (5-15); BILIRUBIN,TOTAL 0.5 mg/dL (0.2-1.0); CALCIUM 8.2 mg/dL (8.5-10.1); IRON LEVEL 49 mcg/dL (50-170); TOTAL IRON BINDING CAPACITY 234 mcg/dL (250-450); TRANSFERRIN 171 mg/dL (200-360)
[2017-05-12 06:55] VITALS: BP 118/61
[2017-05-12] MEDS: INSULIN ASPART 100 UNITS/ML, PEN SQ-INSULIN SCH ×2 (08:21→11:24)
[2017-05-12] MEDS: ASPIRIN 81 MG TABLET EC PO SCH (10:05)
[2017-05-12] MEDS: GUAIFENESIN/DM 200-20MG, 10ML UDC PO PRN (10:05)
[2017-05-12] MEDS: CARVEDILOL 3.125 MG TABLET PO SCH (10:05)
[2017-05-12] MEDS: TICAGRELOR 90 MG TABLET PO SCH (10:05)
[2017-05-12] MEDS: SODIUM CHLORIDE FLUSH 10ML SYR IVF SCH (10:05)
[2017-05-12] MEDS ORDERED: AMOX1TAB64 PO (13:29)
[2017-05-12] MEDS ORDERED: GUAI5SYR PO (13:29)
[2017-05-12 13:35] VITALS: BP 110/68
== END 2017-05-12 14:50 | disposition home health service (06) | DRG 682 ==
LOC: ED 11:46 → 4WST 15:05 → DCLOUNGE 05-12 14:29
PROVIDERS: ADMIT Internal Medicine; ATTEND Internal Medicine
DX: N17.0 Acute kidney failure with tubular necrosis (principal); J18.9 Pneumonia, unspecified organism; I13.0 Hypertensive heart and chronic kidney disease with heart failure and stage 1 through stage 4 chronic kidney disease, or unspecified chronic kidney disease; E11.21 Type 2 diabetes mellitus with diabetic nephropathy; E11.40 Type 2 diabetes mellitus with diabetic neuropathy, unspecified; I50.22 Chronic systolic (congestive) heart failure; E11.65 Type 2 diabetes mellitus with hyperglycemia; E44.1 Mild protein-calorie malnutrition; E87.1 Hypo-osmolality and hyponatremia; D64.9 Anemia, unspecified; E03.9 Hypothyroidism, unspecified; E11.22 Type 2 diabetes mellitus with diabetic chronic kidney disease; K59.09 Other constipation; E78.5 Hyperlipidemia, unspecified; E87.5 Hyperkalemia; I25.10 Atherosclerotic heart disease of native coronary artery without angina pectoris; I45.10 Unspecified right bundle-branch block; M10.9 Gout, unspecified; Z98.42 Cataract extraction status, left eye; Z98.41 Cataract extraction status, right eye; I25.2 Old myocardial infarction; Z79.899 Other long term (current) drug therapy; Z79.82 Long term (current) use of aspirin
CPT/HCPCS: 36415; 71045; 80048; 80053; 82040; 82272; 82728; 82962; 83540; 83550; 83605; 83880; 84145; 84443; 84466; 85025; 85610; 85730; 87040; 87070; 87205; 87400; 93005; 96361; 96365; J0456; J0696; J1644; J1815; J1940; J7030; J7050

== ENCOUNTER 2017-05-24 23:01 | Inpatient (IN) | payer MEDICARE, MEDICAID ==
[~2017-05-24] VITALS: Ht 149.9 cm; Wt 55.4 kg
[~2017-05-24 23:01] MED LIST changes: +AMOX1TAB64 PO; +GUAI5SYR PO
[2017-05-24] MEDS ORDERED: SODIUM CHLORIDE FLUSH 10ML SYR IVF ONE (23:30)
[2017-05-24] MEDS ORDERED: NITROGLYCERIN OINT 2%, 1GM TP ONE (23:30)
[2017-05-24 23:37] LABS: BASOPHILS % (AUTO) 0 % (0-1); EOSINOPHILS # (AUTO) 0.22 x10^3/uL (0-0.4); EOSINOPHILS % (AUTO) 4 % (1-7); LYMPHOCYTES % (AUTO) 16 % (22-44); MD NO; MEAN CORPUSCULAR HEMOGLOBIN 30.9 pg (27.0-34.8); MEAN CORPUSCULAR HGB CONC 33.1 g/dL (32.4-35.8); MEAN CORPUSCULAR VOLUME 93.6 fL (80-100); MONOCYTES # (AUTO) 0.24 x10^3/uL (0.2-0.8); MONOCYTES % (AUTO) 4 % (2-9); NEUTROPHILS % (AUTO) 77 % (42-75); PLATELET COUNT 314 x10^3/uL (130-400); RED CELL DISTRIBUTION WIDTH 16.3 % (9.6-15.2)
[2017-05-24 23:47] LABS: ANION GAP 5 mmol/L (5-15); CALCIUM 8.3 mg/dL (8.5-10.1); CHLORIDE 108 mmol/L (98-107); CREATININE 1.52 mg/dL (0.55-1.02)
[2017-05-24 23:51] LABS: TROPONIN I 0.024 ng/mL (0.000-0.045)
[2017-05-25] MEDS ORDERED: FURO20TA3 PO (00:38)
[2017-05-25] MEDS ORDERED: POTA10TA31 PO (00:39)
[2017-05-25 01:07] VITALS: BP 99/56
[2017-05-25] MEDS: HEPARIN 5,000 UNITS/ML, 1ML SQ SCH ×3 (02:30→19:18)
[2017-05-25] MEDS ORDERED: ACETAMINOPHEN 325 MG TABLET PO PRN (02:30)
[2017-05-25] MEDS ORDERED: ONDANSETRON 2MG/ML, 2ML IVPush PRN (02:30)
[2017-05-25] MEDS ORDERED: DOCUSATE 100 MG CAPSULE PO PRN (02:30)
[2017-05-25] MEDS ORDERED: ENALAPRILAT 1.25 MG/ML, 2ML IVPush PRN (02:30)
[2017-05-25] MEDS ORDERED: BISACODYL 10 MG SUPP PR PRN (02:30)
[2017-05-25] MEDS ORDERED: POLYETHYLENE GLYCOL 17 GM PACKET PO PRN (02:30)
[2017-05-25] MEDS ORDERED: OXYcodone IR 5MG TABLET PO PRN (02:30)
[2017-05-25] MEDS ORDERED: morphine SULFATE 10 MG/ML, 1ML IVPush PRN (02:30)
[2017-05-25 03:30] LABS: FREE T4 (FREE THYROXINE) 1.13 ng/dL (0.76-1.46); THYROID STIMULATING HORMONE 2.95 mIU/L (0.358-3.740)
[2017-05-25 03:30] LABS: MICROSCOPIC AUTO
[2017-05-25 03:31] LABS: CULTURE INDICATED? YES
[2017-05-25 03:37] LABS: HEMOGLOBIN A1C 8.3 % (4.2-6.3)
[2017-05-25 05:57] LABS: TROPONIN I 0.085 ng/mL (0.000-0.045)
[2017-05-25 08:48] VITALS: BP 108/61
[2017-05-25] MEDS ORDERED: CARVEDILOL 3.125 MG TABLET PO SCH (09:00)
[2017-05-25] MEDS ORDERED: POTASSIUM CHLORIDE 10 MEQ TABLET.ER PO SCH (09:00)
[2017-05-25] MEDS: TICAGRELOR 90 MG TABLET PO SCH ×2 (09:29→21:36)
[2017-05-25] MEDS: LEVOTHYROXINE 50 MCG TABLET PO SCH (09:29)
[2017-05-25] MEDS: PANTOPROZOLE 40MG TABLET PO SCH (09:29)
[2017-05-25] MEDS: CARVEDILOL 3.125 MG TABLET PO SCH ×2 (09:29→21:35)
[2017-05-25] MEDS: ASPIRIN 81 MG TABLET EC PO SCH (09:29)
[2017-05-25] MEDS: ISOSORBIDE MONONITRATE ER 30 MG TABLET PO SCH (09:31)
[2017-05-25 12:38] LABS: TROPONIN I 0.077 ng/mL (0.000-0.045)
[2017-05-25 16:18] VITALS: BP 109/62
[2017-05-25 20:50] VITALS: BP 122/69
[2017-05-25] MEDS ORDERED: FERROUS SULFATE BC SCH (21:00)
[2017-05-25] MEDS ORDERED: SIMVASTATIN 40 MG TABLET PO SCH (21:00)
[2017-05-25] MEDS: BENZONATATE 100 MG CAPSULE PO SCH (21:36)
[2017-05-26 01:57] VITALS: BP 99/54
[2017-05-26] MEDS: HEPARIN 5,000 UNITS/ML, 1ML SQ SCH ×2 (02:30→11:42)
[2017-05-26 05:27] LABS: BASOPHILS # (AUTO) 0.03 x10^3/uL (0-0.1); BASOPHILS % (AUTO) 1 % (0-1); EOSINOPHILS # (AUTO) 0.16 x10^3/uL (0-0.4); EOSINOPHILS % (AUTO) 4 % (1-7); LYMPHOCYTES # (AUTO) 1.39 x10^3/uL (1-3.4); LYMPHOCYTES % (AUTO) 32 % (22-44); MD NO; MEAN CORPUSCULAR HEMOGLOBIN 31.2 pg (27.0-34.8); MEAN CORPUSCULAR HGB CONC 33.4 g/dL (32.4-35.8); MEAN CORPUSCULAR VOLUME 93.6 fL (80-100); MEAN PLATELET VOLUME 7.9 fL (7.4-10.4); MONOCYTES # (AUTO) 0.49 x10^3/uL (0.2-0.8); MONOCYTES % (AUTO) 11 % (2-9); NEUTROPHILS # (AUTO) 2.24 x10^3/uL (1.8-6.8); NEUTROPHILS % (AUTO) 52 % (42-75); PLATELET COUNT 282 x10^3/uL (130-400); RED BLOOD COUNT 2.52 x10^6/uL (3.82-5.3); RED CELL DISTRIBUTION WIDTH 16.5 % (9.6-15.2)
[2017-05-26 05:32] LABS: CHLORIDE 111 mmol/L (98-107)
[2017-05-26 05:37] LABS: ALANINE AMINOTRANSFERASE 12 U/L (12-78); ALBUMIN 2.8 g/dL (3.4-5.0); ALKALINE PHOSPHATASE 58 U/L (45-117); ANION GAP 6 mmol/L (5-15); BILIRUBIN,TOTAL 0.8 mg/dL (0.2-1.0); CALCIUM 8.3 mg/dL (8.5-10.1); CHOL/HDL RATIO 2.3; CHOLESTEROL, TOTAL 97 mg/dL (140-239); CREATININE 1.27 mg/dL (0.55-1.02); HDL CHOL % 43 % (28-40); HDL CHOLESTEROL (DIRECT) 42 mg/dL (40-60); LDL CHOLESTEROL,CALCULATED 38 mg/dL (54-169); LDL/HDL RATIO 0.9 (0.5-3.0); TOTAL PROTEIN 6.8 g/dL (6.4-8.2); TRIGLYCERIDES 86 mg/dL (50-200); VLDL CHOLESTEROL 17 mg/dL (0-25)
[2017-05-26 07:07] VITALS: BP 111/55
[2017-05-26] MEDS: ISOSORBIDE MONONITRATE ER 30 MG TABLET PO SCH (07:44)
[2017-05-26] MEDS: BENZONATATE 100 MG CAPSULE PO SCH (07:44)
[2017-05-26] MEDS: ASPIRIN 81 MG TABLET EC PO SCH (07:44)
[2017-05-26] MEDS: CARVEDILOL 3.125 MG TABLET PO SCH (07:44)
[2017-05-26] MEDS: PANTOPROZOLE 40MG TABLET PO SCH (07:44)
[2017-05-26] MEDS: LEVOTHYROXINE 50 MCG TABLET PO SCH (07:45)
[2017-05-26] MEDS: TICAGRELOR 90 MG TABLET PO SCH (07:45)
[2017-05-26] MEDS ORDERED: ISOS30TA8 PO (08:22)
[2017-05-26 10:04] VITALS: BP 102/53
[2017-05-26 10:23] VITALS: BP 103/57
[2017-05-26 12:45] VITALS: BP 115/57
[2017-05-26 13:16] VITALS: BP 107/50
== END 2017-05-26 16:43 | disposition home or self-care (01) | DRG 682 ==
LOC: ED 23:33 → EDIP 05-25 00:09 → 5SO 05-25 01:00 → DCLOUNGE 05-26 16:32
PROVIDERS: ADMIT Internal Medicine; ATTEND Internal Medicine
PROC: 30233N1 Transfusion of Nonautologous Red Blood Cells into Peripheral Vein, Percutaneous Approach (ICD-10-PCS; principal; 2017-05-26)
DX: N17.9 Acute kidney failure, unspecified (principal); I50.43 Acute on chronic combined systolic (congestive) and diastolic (congestive) heart failure; E44.0 Moderate protein-calorie malnutrition; E11.22 Type 2 diabetes mellitus with diabetic chronic kidney disease; I25.10 Atherosclerotic heart disease of native coronary artery without angina pectoris; D64.9 Anemia, unspecified; E03.9 Hypothyroidism, unspecified; E11.42 Type 2 diabetes mellitus with diabetic polyneuropathy; E11.65 Type 2 diabetes mellitus with hyperglycemia; E78.5 Hyperlipidemia, unspecified; Y84.0 Cardiac catheterization as the cause of abnormal reaction of the patient, or of later complication, without mention of misadventure at the time of the procedure; I25.5 Ischemic cardiomyopathy; K59.09 Other constipation; M10.9 Gout, unspecified; N18.3 Chronic kidney disease, stage 3 (moderate); Z79.82 Long term (current) use of aspirin; I25.2 Old myocardial infarction; Z87.01 Personal history of pneumonia (recurrent); Z95.1 Presence of aortocoronary bypass graft; Z95.5 Presence of coronary angioplasty implant and graft; Z98.42 Cataract extraction status, left eye; Z98.41 Cataract extraction status, right eye; Z68.24 Body mass index [BMI] 24.0-24.9, adult; T82.855D Stenosis of coronary artery stent, subsequent encounter
CPT/HCPCS: 36415; 71045; 80048; 80053; 80061; 81001; 82040; 82306; 82607; 82728; 82962; 83036; 83540; 83550; 83735; 84439; 84443; 84466; 84484; 85014; 85018; 85025; 86850; 86900; 86923; 87077; 87086; 87186; 93005; 99285; J1644; P9016

== ENCOUNTER → 2017-07-07 | Outpatient (CLI) | payer MEDICARE, MEDICAID ==
[~2017-07-07] MED LIST changes: +FURO20TA3 PO; +ISOS30TA8 PO; +POTA10TA31 PO
== END ==
LOC: CFH 09:43
PROVIDERS: ATTEND Internal Medicine Cardiovascular Disease
DX: I13.0 Hypertensive heart and chronic kidney disease with heart failure and stage 1 through stage 4 chronic kidney disease, or unspecified chronic kidney disease (principal); I50.9 Heart failure, unspecified; E11.22 Type 2 diabetes mellitus with diabetic chronic kidney disease; N18.4 Chronic kidney disease, stage 4 (severe); I48.0 Paroxysmal atrial fibrillation; I25.2 Old myocardial infarction; I25.10 Atherosclerotic heart disease of native coronary artery without angina pectoris; I08.1 Rheumatic disorders of both mitral and tricuspid valves; Z95.5 Presence of coronary angioplasty implant and graft
CPT/HCPCS: 93306

== ENCOUNTER → 2017-10-19 | Outpatient (CLI) | payer MEDICARE, MEDICAID | LOC: CFH 09:30 | PROVIDERS: ATTEND Family Medicine | DX: Z13.820 Encounter for screening for osteoporosis (principal); M81.8 Other osteoporosis without current pathological fracture | CPT/HCPCS: 77080 ==

== ENCOUNTER 2018-11-07 07:26 | Inpatient (IN) | payer MEDICARE, MEDICAID ==
[~2018-11-07] VITALS: Ht 144.8 cm; Wt 60.8 kg
[~2018-11-07 07:26] MED LIST changes: -ASPI-621 PO; +ASPI81TA45 PO
[2018-11-07] MEDS ORDERED: NITR0.6T4 SL (08:01)
[2018-11-07] MEDS ORDERED: LINA5TAB PO (08:04)
[2018-11-07] MEDS ORDERED: ASPIRIN 81 MG TABLET CHEW ONE (08:12)
[2018-11-07] MEDS ORDERED: ASPIRIN 81 MG TABLET CHEW PO ONE (08:30)
[2018-11-07] MEDS ORDERED: SODIUM CHLORIDE FLUSH 10ML SYR IVF ONE (08:30)
--- NOTE | 2018-11-07 08:35 | NUR ---
ASSISTED PATIENT TO RESTROOM VIA WHEELCHAIR. DAUGHTER IN LAW STAYED WITH PATIENT IN RESTROOM
[2018-11-07 08:39] LABS: ALBUMIN 3.8 g/dL (3.4-5.0); ANION GAP 7 mmol/L (5-15); CALCIUM 9.6 mg/dL (8.5-10.1); CHLORIDE 107 mmol/L (98-107); CREATININE 1.82 mg/dL (0.55-1.02)
[2018-11-07 08:43] LABS: TROPONIN I < 0.015 ng/mL (0.000-0.045)
--- NOTE | 2018-11-07 08:43 | NUR ---
PATIENT FROM BATHROOM. RE-ESTABLISHED TO MONITOR. SON AND DAUGHTER IN LAW AT . PATIENT IRESTING WITH EYES CLOOSED. AWAITING RESULTS.
--- NOTE | 2018-11-07 09:00 | NUR ---
ASSUMED CARE OF PT. FAMILY AT BEDSIDE. PT IN NO DISTRESS. WILL CONTINUE TO MONITOR
[2018-11-07 09:14] LABS: BASOPHILS # (AUTO) 0.02 x10^3/uL (0-0.1); BASOPHILS % (AUTO) 0 % (0-1); EOSINOPHILS # (AUTO) 0.09 x10^3/uL (0-0.4); EOSINOPHILS % (AUTO) 1 % (1-7); LYMPHOCYTES # (AUTO) 1.73 x10^3/uL (1-3.4); LYMPHOCYTES % (AUTO) 26 % (22-44); MD NO; MEAN CORPUSCULAR HEMOGLOBIN 30.2 pg (27.0-34.8); MEAN CORPUSCULAR VOLUME 94.6 fL (80-100); MEAN PLATELET VOLUME 7.6 fL (7.4-10.4); MONOCYTES # (AUTO) 0.56 x10^3/uL (0.2-0.8); MONOCYTES % (AUTO) 9 % (2-9); NEUTROPHILS # (AUTO) 4.18 x10^3/uL (1.8-6.8); NEUTROPHILS % (AUTO) 64 % (42-75); PLATELET COUNT 217 x10^3/uL (130-400); RED BLOOD COUNT 3.61 x10^6/uL (3.82-5.3); RED CELL DISTRIBUTION WIDTH 15.2 % (9.6-15.2)
[2018-11-07 09:24] LABS: INTERNATIONAL NORMALIZED RATIO 0.98 (0.93-1.1); PROTHROMBIN TIME 10.3 Seconds (9.6-11.5)
--- NOTE | 2018-11-07 09:52 | NUR ---
REPORT RECEIVED FROM HERNÁN BARILLAS. ASSUMED CARE OF PT.
[2018-11-07] MEDS ORDERED: SODIUM CHLORIDE FLUSH 10ML SYR IVF PRN (10:00)
--- NOTE | 2018-11-07 10:00 | NUR ---
PT CURRENTLY RESTING ON GURNEY. NAD NOTED. SKIN PWD. RESP EVEN AND UNLABORED. PT CURRENTLY DENIES PAIN. PT ON CONT BP, CARDIAC AND O2 MONITORS. FAMILY AT BEDSIDE. PT AND FAMILY AWARE THAT WE ARE WAITING FOR ADMISSION. PT DENIES NEEDS AT THIS TIME. CALL LIGHT WITHIN REACH.
--- NOTE | 2018-11-07 10:33 | NUR ---
REPORT CALLED TO HERNÁN COBIAN ON MED/TELE.
[2018-11-07] MEDS ORDERED: hydrALAzine 20 MG/ML, 1ML IVPush PRN (11:00)
[2018-11-07] MEDS ORDERED: DOCUSATE 100 MG CAPSULE PO PRN (11:00)
[2018-11-07] MEDS ORDERED: NITROGLYCERIN 0.4 MG BOTTLE (25 TABS) SL PRN (11:00)
[2018-11-07] MEDS ORDERED: morphine SULFATE 10 MG/ML, 1ML IVPush PRN (11:00)
[2018-11-07] MEDS ORDERED: MAALOX/HYOSCYAMINE/LIDOCAINE 45 ML BTL PO PRN (11:00)
[2018-11-07] MEDS ORDERED: ONDANSETRON ODT 4 MG PO PRN (11:00)
[2018-11-07] MEDS ORDERED: ONDANSETRON 2MG/ML, 2ML IVPush PRN (11:00)
[2018-11-07] MEDS ORDERED: BISACODYL 10 MG SUPP PR PRN (11:00)
[2018-11-07] MEDS ORDERED: ACETAMINOPHEN 325 MG TABLET PO PRN (11:00)
[2018-11-07] MEDS ORDERED: POLYETHYLENE GLYCOL 17 GM PACKET PO PRN (11:00)
[2018-11-07] MEDS ORDERED: LABETALOL 5MG/ML, 20ML IVPush PRN (11:00)
[2018-11-07 11:06] VITALS: BP 148/82
[2018-11-07] MEDS ORDERED: FUROSEMIDE 20 MG TABLET PO SCH (11:07)
[2018-11-07] MEDS ORDERED: DEXTROSE 50%, 50ML SYRINGE IVPush PRN (11:30)
[2018-11-07] MEDS ORDERED: DEXTROSE 4 GM TAB.CHEW PO PRN (11:30)
[2018-11-07] MEDS ORDERED: GLUCAGON 1 MG IM PRN (11:30)
[2018-11-07] MEDS: HEPARIN 5,000 UNITS/ML, 1ML SQ SCH ×2 (12:14→17:15)
[2018-11-07 12:16] LABS: TROPONIN I 0.074 ng/mL (0.000-0.045)
[2018-11-07] MEDS ORDERED: HEPARIN 5,000 UNITS/ML, 1ML IV PRN (12:30)
[2018-11-07] MEDS ORDERED: HEPARIN 25,000 UNITS/500ML PMX 500 ML IV PRN (12:30)
[2018-11-07] MEDS ORDERED: HEPARIN 5,000 UNITS/ML, 1ML IV ONE (12:30)
[2018-11-07] MEDS: NITROGLYCERIN OINT 2%, 1GM TP SCH ×2 (13:35→18:30)
[2018-11-07] MEDS: INSULIN LISPRO 100 UNITS/ML, PEN SQ-INSULIN SCH ×3 (14:02→20:33)
[2018-11-07 16:00] VITALS: BP 130/79
[2018-11-07] MEDS ORDERED: INSULIN LISPRO 100 UNITS/ML, PEN SQ-INSULIN SCH (16:00)
[2018-11-07 18:58] VITALS: BP 95/53
[2018-11-07 18:58] LABS: TROPONIN I 0.226 ng/mL (0.000-0.045)
[2018-11-07 20:29] VITALS: BP 122/72
[2018-11-07] MEDS: SODIUM CHLORIDE FLUSH 10ML SYR IVF SCH (20:32)
[2018-11-07] MEDS: ATORVASTATIN 40 MG TABLET PO SCH (20:32)
[2018-11-07] MEDS ORDERED: CARVEDILOL 6.25 MG TABLET PO SCH (21:00)
[2018-11-08] MEDS: NITROGLYCERIN OINT 2%, 1GM TP SCH ×4 (00:14→18:34)
[2018-11-08] MEDS: HEPARIN 5,000 UNITS/ML, 1ML SQ SCH ×3 (01:17→19:00)
[2018-11-08 01:55] VITALS: BP 119/59
[2018-11-08 03:38] LABS: BASOPHILS # (AUTO) 0.02 x10^3/uL (0-0.1); BASOPHILS % (AUTO) 0 % (0-1); EOSINOPHILS # (AUTO) 0.09 x10^3/uL (0-0.4); EOSINOPHILS % (AUTO) 2 % (1-7); LYMPHOCYTES # (AUTO) 1.93 x10^3/uL (1-3.4); LYMPHOCYTES % (AUTO) 34 % (22-44); MD NO; MEAN CORPUSCULAR HEMOGLOBIN 31.3 pg (27.0-34.8); MEAN CORPUSCULAR HGB CONC 32.4 g/dL (32.4-35.8); MEAN CORPUSCULAR VOLUME 96.6 fL (80-100); MONOCYTES # (AUTO) 0.58 x10^3/uL (0.2-0.8); MONOCYTES % (AUTO) 10 % (2-9); NEUTROPHILS # (AUTO) 3.04 x10^3/uL (1.8-6.8); NEUTROPHILS % (AUTO) 54 % (42-75); PLATELET COUNT 230 x10^3/uL (130-400); RED BLOOD COUNT 3.56 x10^6/uL (3.82-5.3); RED CELL DISTRIBUTION WIDTH 14.9 % (9.6-15.2)
[2018-11-08 03:51] LABS: ANION GAP 9 mmol/L (5-15); CALCIUM 8.9 mg/dL (8.5-10.1); CHLORIDE 105 mmol/L (98-107); CREATININE 1.91 mg/dL (0.55-1.02)
[2018-11-08] MEDS ORDERED: ASPIRIN 325 MG TABLET EC PO SCH (06:00)
[2018-11-08 07:08] VITALS: BP 109/61
[2018-11-08] MEDS ORDERED: SODIUM CHLORIDE 0.9% 1,000 ML IV SCH ×2 (08:00→10:00)
[2018-11-08] MEDS: INSULIN LISPRO 100 UNITS/ML, PEN SQ-INSULIN SCH ×4 (09:08→21:00)
[2018-11-08] MEDS: ISOSORBIDE MONONITRATE ER 30 MG TABLET PO SCH (09:09)
[2018-11-08] MEDS: PANTOPROZOLE 40MG TABLET PO SCH (09:09)
[2018-11-08] MEDS: ASPIRIN 81 MG TABLET EC PO SCH (09:09)
[2018-11-08] MEDS: SODIUM CHLORIDE FLUSH 10ML SYR IVF SCH ×2 (09:10→21:00)
[2018-11-08] MEDS: LEVOTHYROXINE 75 MCG TABLET PO SCH (09:10)
[2018-11-08 13:36] LABS: CHOL/HDL RATIO 2.1; LDL/HDL RATIO 0.8 (0.5-3.0)
[2018-11-08 13:48] VITALS: BP 96/56
[2018-11-08] MEDS: SODIUM CHLORIDE 0.9% 1,000 ML IV SCH ×3 (13:54→17:40)
[2018-11-08] MEDS ORDERED: MIDAZOLAM 1 MG/ML, 2ML ONE (15:33)
[2018-11-08] MEDS ORDERED: LIDOCAINE-MPF 1%, 5ML ONE (15:34)
[2018-11-08] MEDS ORDERED: FENTANYL PF 100 MCG/2ML ONE (15:34)
[2018-11-08] MEDS ORDERED: HEPARIN 1,000 UNITS/ML, 10ML ONE (15:34)
[2018-11-08] MEDS ORDERED: VERAPAMIL 2.5 MG/ML, 2ML ONE (15:34)
[2018-11-08] MEDS ORDERED: BIVALIRUDIN 250 MG ONE (16:10)
[2018-11-08] MEDS ORDERED: TICAGRELOR 90 MG TABLET ONE (16:31)
[2018-11-08 20:06] VITALS: BP 119/70
[2018-11-08] MEDS: TICAGRELOR 90 MG TABLET PO SCH (20:56)
[2018-11-08] MEDS: ATORVASTATIN 40 MG TABLET PO SCH (20:56)
[2018-11-08 20:57] VITALS: BP 118/69
[2018-11-08] MEDS: CARVEDILOL 6.25 MG TABLET PO SCH (20:59)
[2018-11-09] MEDS: SODIUM CHLORIDE 0.9% 1,000 ML IV SCH ×3 (00:29→07:51)
[2018-11-09] MEDS: NITROGLYCERIN OINT 2%, 1GM TP SCH ×2 (00:30→06:30)
[2018-11-09 00:51] VITALS: BP 116/57
[2018-11-09] MEDS: HEPARIN 5,000 UNITS/ML, 1ML SQ SCH ×2 (03:00→07:51)
[2018-11-09 04:32] LABS: BASOPHILS # (AUTO) 0.01 x10^3/uL (0-0.1); BASOPHILS % (AUTO) 0 % (0-1); EOSINOPHILS # (AUTO) 0.06 x10^3/uL (0-0.4); EOSINOPHILS % (AUTO) 1 % (1-7); LYMPHOCYTES # (AUTO) 1.44 x10^3/uL (1-3.4); LYMPHOCYTES % (AUTO) 27 % (22-44); MD NO; MEAN CORPUSCULAR HEMOGLOBIN 30.2 pg (27.0-34.8); MEAN CORPUSCULAR HGB CONC 32.1 g/dL (32.4-35.8); MEAN CORPUSCULAR VOLUME 94.2 fL (80-100); MEAN PLATELET VOLUME 7.8 fL (7.4-10.4); MONOCYTES # (AUTO) 0.57 x10^3/uL (0.2-0.8); MONOCYTES % (AUTO) 11 % (2-9); NEUTROPHILS # (AUTO) 3.22 x10^3/uL (1.8-6.8); NEUTROPHILS % (AUTO) 61 % (42-75); PLATELET COUNT 209 x10^3/uL (130-400); RED BLOOD COUNT 3.35 x10^6/uL (3.82-5.3); RED CELL DISTRIBUTION WIDTH 15.3 % (9.6-15.2)
[2018-11-09 04:37] LABS: ANION GAP 8 mmol/L (5-15); CALCIUM 8.7 mg/dL (8.5-10.1); CHLORIDE 108 mmol/L (98-107); CREATININE 1.83 mg/dL (0.55-1.02)
[2018-11-09 07:30] VITALS: BP 138/70
[2018-11-09] MEDS: ISOSORBIDE MONONITRATE ER 30 MG TABLET PO SCH (07:50)
[2018-11-09] MEDS: TICAGRELOR 90 MG TABLET PO SCH (07:50)
[2018-11-09] MEDS: ASPIRIN 81 MG TABLET EC PO SCH (07:50)
[2018-11-09] MEDS: PANTOPROZOLE 40MG TABLET PO SCH (07:50)
[2018-11-09] MEDS: CARVEDILOL 6.25 MG TABLET PO SCH (07:50)
[2018-11-09] MEDS: LEVOTHYROXINE 75 MCG TABLET PO SCH (07:50)
[2018-11-09] MEDS: INSULIN LISPRO 100 UNITS/ML, PEN SQ-INSULIN SCH (07:51)
[2018-11-09] MEDS: SODIUM CHLORIDE FLUSH 10ML SYR IVF SCH (07:51)
[2018-11-09] MEDS ORDERED: FUROSEMIDE 20 MG TABLET PO SCH (09:00)
[2018-11-09] MEDS ORDERED: ASPIRIN 81 MG TABLET EC PO SCH (09:00)
[2018-11-09] MEDS ORDERED: ATOR-2 PO (09:25)
[2018-11-09] MEDS ORDERED: ATORVASTATIN 80 MG TABLET PO SCH (21:00)
== END 2018-11-09 10:47 | disposition home or self-care (01) | DRG 246 ==
LOC: ED 09:25 → OBSVTOIN 10:34 → INTOOBSV 10:34 → 5SO 10:34
PROVIDERS: ADMIT Hospitalist; ATTEND Hospitalist
PROC: 027034Z Dilation of Coronary Artery, One Artery with Drug-eluting Intraluminal Device, Percutaneous Approach (ICD-10-PCS; principal; 2018-11-08)
PROC: 4A023N7 Measurement of Cardiac Sampling and Pressure, Left Heart, Percutaneous Approach (ICD-10-PCS; 2018-11-08)
PROC: B2111ZZ Fluoroscopy of Multiple Coronary Arteries using Low Osmolar Contrast (ICD-10-PCS; 2018-11-08)
PROC: B2151ZZ Fluoroscopy of Left Heart using Low Osmolar Contrast (ICD-10-PCS; 2018-11-08)
DX: T82.855A Stenosis of coronary artery stent, initial encounter (principal); I21.4 Non-ST elevation (NSTEMI) myocardial infarction; I50.42 Chronic combined systolic (congestive) and diastolic (congestive) heart failure; I13.0 Hypertensive heart and chronic kidney disease with heart failure and stage 1 through stage 4 chronic kidney disease, or unspecified chronic kidney disease; I42.9 Cardiomyopathy, unspecified; I25.110 Atherosclerotic heart disease of native coronary artery with unstable angina pectoris; N18.3 Chronic kidney disease, stage 3 (moderate); M10.9 Gout, unspecified; I45.10 Unspecified right bundle-branch block; I08.0 Rheumatic disorders of both mitral and aortic valves; E78.5 Hyperlipidemia, unspecified; E87.5 Hyperkalemia; E11.65 Type 2 diabetes mellitus with hyperglycemia; E11.22 Type 2 diabetes mellitus with diabetic chronic kidney disease; E03.9 Hypothyroidism, unspecified; D64.9 Anemia, unspecified; Y84.8 Other medical procedures as the cause of abnormal reaction of the patient, or of later complication, without mention of misadventure at the time of the procedure; Y92.89 Other specified places as the place of occurrence of the external cause; I25.2 Old myocardial infarction; Z95.5 Presence of coronary angioplasty implant and graft; Z95.1 Presence of aortocoronary bypass graft; Z86.79 Personal history of other diseases of the circulatory system; Z83.3 Family history of diabetes mellitus; Z98.49 Cataract extraction status, unspecified eye; Z95.818 Presence of other cardiac implants and grafts
CPT/HCPCS: 36415; 71045; 80048; 80061; 82040; 82962; 83735; 83880; 84484; 85025; 85520; 85610; 85730; 93005; 93306; 93458; 99156; 99157; 99285; C1769; C1894; C9600; G0378; J0583; J1644; J2250; J3010; C1725; C1874; C1887; J1815; J7030; Q9967

== ENCOUNTER → 2019-02-28 | Outpatient (CLI) | payer MEDICARE, MEDICAID ==
[~2019-02-28] MED LIST changes: +ATOR-2 PO; -BUME0.5T PO; +BUME0.5T2 PO; +LINA5TAB PO; +NITR0.6T4 SL
== END | disposition home or self-care (01) ==
LOC: CFH 10:37
PROVIDERS: ATTEND Internal Medicine Cardiovascular Disease
DX: I08.0 Rheumatic disorders of both mitral and aortic valves (principal); I70.0 Atherosclerosis of aorta; E11.9 Type 2 diabetes mellitus without complications; I25.5 Ischemic cardiomyopathy; I50.9 Heart failure, unspecified; I25.2 Old myocardial infarction; E78.5 Hyperlipidemia, unspecified; I11.0 Hypertensive heart disease with heart failure
CPT/HCPCS: 93306

== ENCOUNTER 2019-10-14 11:08 | Emergency (ER) | payer MEDICARE, MEDICAID ==
[~2019-10-14] VITALS: Ht 152.4 cm; Wt 61.0 kg
[~2019-10-14 11:08] MED LIST changes: +SIMV40TA20 PO; -SIMV40TA3 PO
[2019-10-14 11:18] VITALS: BP 164/59
--- NOTE | 2019-10-14 11:50 | NUR ---
HAND MARKER IN TO DRAW.
[2019-10-14 11:59] LABS: BASOPHILS # (AUTO) 0.02 x10^3/uL (0-0.1); BASOPHILS % (AUTO) 0 % (0-1); EOSINOPHILS # (AUTO) 0.09 x10^3/uL (0-0.4); EOSINOPHILS % (AUTO) 1 % (1-7); LYMPHOCYTES # (AUTO) 1.51 x10^3/uL (1-3.4); LYMPHOCYTES % (AUTO) 22 % (22-44); MD NO; MEAN CORPUSCULAR HGB CONC 33.2 g/dL (32.4-35.8); MEAN CORPUSCULAR VOLUME 93.3 fL (80-100); MEAN PLATELET VOLUME 8.2 fL (7.4-10.4); MONOCYTES # (AUTO) 0.74 x10^3/uL (0.2-0.8); MONOCYTES % (AUTO) 11 % (2-9); NEUTROPHILS # (AUTO) 4.45 x10^3/uL (1.8-6.8); NEUTROPHILS % (AUTO) 65 % (42-75); PLATELET COUNT 210 x10^3/uL (130-400); RED BLOOD COUNT 3.49 x10^6/uL (3.82-5.3); RED CELL DISTRIBUTION WIDTH 14.6 % (9.6-15.2)
[2019-10-14 12:13] LABS: INTERNATIONAL NORMALIZED RATIO 0.99 (0.93-1.1); PROTHROMBIN TIME 10.5 Seconds (9.6-11.5)
[2019-10-14 12:19] LABS: ALBUMIN 2.9 g/dL (3.4-5.0); ANION GAP 6 mmol/L (5-15); CALCIUM 8.6 mg/dL (8.5-10.1); CHLORIDE 111 mmol/L (98-107); CREATININE 2.81 mg/dL (0.55-1.02)
--- NOTE | 2019-10-14 12:44 | NUR ---
PT WITHOUT ACTIVE BLEEDING IN ER. LAB RESULTS BACK, PT FOR RECHECK.
--- NOTE | 2019-10-14 12:55 | NUR ---
REPORT TO KURTIS, TRANSFER OF CARE AT THIS TIME.
--- NOTE | 2019-10-14 12:58 | NUR ---
Assumed care at this time, bedside report recieved by Sirisha JIM.
[2019-10-14] MEDS ORDERED: OXYMETAZOLINE NASAL SPRAY 0.05%,30ML ONE ×2 (13:02→14:28)
[2019-10-14] MEDS ORDERED: LIDOCAINE-MPF 1%, 5ML ONE (13:02)
--- NOTE | 2019-10-14 13:22 | NUR ---
Pt nasal tray and medications at bedside. Pt assisted to restroom and tolerated well and ambulated well. Pt reports she still feels like its bleeding.
--- NOTE | 2019-10-14 14:23 | NUR ---
Pt started bleeding again when stood up. informed.
[2019-10-14] MEDS ORDERED: PHENYLEPHRINE NASAL 1%, 15ML SPRAY NAS ONE (14:29)
--- NOTE | 2019-10-14 14:31 | NUR ---
Neosynepherine requested from pharmacy. wants Neosynepherine.
[2019-10-14] MEDS ORDERED: PHENYLEPHRINE NASAL 1%, 15ML SPRAY ONE (14:51)
== END 2019-10-14 15:53 ==
LOC: ED 12:04
DX: R04.0 Epistaxis (principal); I13.0 Hypertensive heart and chronic kidney disease with heart failure and stage 1 through stage 4 chronic kidney disease, or unspecified chronic kidney disease; I50.9 Heart failure, unspecified; D64.9 Anemia, unspecified; N18.9 Chronic kidney disease, unspecified; E11.65 Type 2 diabetes mellitus with hyperglycemia; I25.2 Old myocardial infarction; E78.5 Hyperlipidemia, unspecified; Z98.61 Coronary angioplasty status; Z95.1 Presence of aortocoronary bypass graft
CPT/HCPCS: 30901; 36415; 80048; 82040; 85025; 85610; 99284

== ENCOUNTER → 2019-12-19 | Outpatient (CLI) | payer MEDICARE, MEDICAID | END | disposition home or self-care (01) | LOC: CFH 07:24 | PROVIDERS: ATTEND Internal Medicine Cardiovascular Disease | DX: I08.0 Rheumatic disorders of both mitral and aortic valves (principal); E78.5 Hyperlipidemia, unspecified; E11.9 Type 2 diabetes mellitus without complications; I11.9 Hypertensive heart disease without heart failure; I25.5 Ischemic cardiomyopathy | CPT/HCPCS: 93306 ==